=== PATIENT | female | born 1960 | race Caucasian/White ===

== ENCOUNTER 2017-04-26 17:57 | Inpatient (IN) | payer BC, SELFPAY ==
[~2017-04-26 17:57] MED LIST: Dexamethasone 20 MG/5 ML VIAL ONE; Glycopyrrolate 0.2 MG/ML 5 ML SYRINGE ONE; ISOVUE-370 76%-LOCM 1 ML ONE; Lidocaine 1% PF 5 ML VIAL ONE; Ondansetron HCl/PF 4 MG/2 ML Vial ONE; Succinylcholine Chloride 20 MG/ML 10 ml SYRINGE FS ONE
[2017-04-26] MEDS ORDERED: Ondansetron HCl/PF 4 MG/2 ML Vial ONE (18:33)
[2017-04-26] MEDS ORDERED: Piperacillin/Tazobactam 4.5 GM in Sodium Chloride 0.9% 100 ML IVPB ONE (18:45)
[2017-04-26 18:46] LABS: Hemoglobin 14.5 g/dL (12.0-16.0); Mean Corpuscular HGB CONC 32.3 g/dL (32.0-36.0); Mean Corpuscular Hemoglobin 30.1 pg (27.0-31.0); Mean Corpuscular Volume 93.4 fl (81.0-99.0); Mean Platelet Volume 8.8 fL (7.4-10.4); Platelet Count 257 thou/uL (130-400); Red Blood Cell (RBC) Count 4.81 mill/uL (4.20-5.40); White Blood Cell (WBC) Count 21.3 thou/uL (4.8-10.8)
[2017-04-26 18:51] LABS: INR-International Normal Ratio 1.2; PTT 32.8 SEC (22.9-36.1); Prothrombin Time 15.2 SEC (12.0-14.7)
[2017-04-26 18:54] LABS: Base Excess-Venous 3.3 mmol/L (-30.0-30.0); Bicarbonate (HCO3v) 28.6 mmol/L (1.0-85.0); CO2 Tension (PvCO2) 44.4 mmHg (41.0-51.0); Calcium, Ionized 0.94 mmol/L (1.12-1.32); Hemoglobin - Calc 16.5 g/dL (12.0-18.0); O2 Tension (PvO2) 27.5 mmHg (35.0-45.0); Potassium 3.3 mmol/L (3.4-4.7); pH (Venous) 7.417 (7.35-7.45)
[2017-04-26 19:03] LABS: ALT (SGPT) 39 U/L (8-55); AST (SGOT) 37 U/L (5-34); Albumin 3.7 g/dL (3.5-5.0); Alkaline Phosphatase 173 U/L (40-150); Anion Gap 15 mmol/L (10-20); BUN (Urea Nitrogen) 23 mg/dL (9.8-20.1); Bilirubin, Total 0.7 mg/dL (0.2-1.2); CK (CPK) 125 U/L (29-168); Calc. Creatinine Clearance 0 mL/min (70-130); Calcium 9.1 mg/dL (7.8-10.44); Carbon Dioxide 27 mmol/L (22-29); Chloride 92 mmol/L (98-107); Estimated GFR-MDRD 68; Globulin 3.6 g/dL (2.4-3.5); Glucose 143 mg/dL (70-105); Potassium 3.6 mmol/L (3.5-5.1); Protein, Total 7.3 g/dL (6.0-8.3); Sodium 130 mmol/L (136-145)
[2017-04-26 19:04] LABS: Fibrinogen 1107 mg/dL (253-463)
[2017-04-26 19:10] LABS: Band 10 % (5-11); Lymphocytes 3 % (21-51); MDiff Complete? YES; Monocytes 4 % (0-10); Neutrophil 83 % (42-75); PLT Morphology Comment Appears Adequate
[2017-04-26] MEDS ORDERED: Clindamycin/D5W 900 mg/50 ml Premix Bag ONE (19:19)
[2017-04-26 19:22] LABS: FSP-Qualitative Normal (Normal)
--- NOTE | 2017-04-26 19:48 | HP ---
DATE OF ADMISSION: 04/26/2017 CHIEF COMPLAINT: Right leg infection. HISTORY OF PRESENT ILLNESS: Cash is a 56-year-old female, who was diagnosed with right leg cellul itis 5 days ago, prescribed antibiotics by primary care physician. She could not take, they made her sick. She now has bulla formation, blistering, severe pain to her right upper inner thigh. Seen by Dr. Sepulveda and I have been consulted for neck fascia. CT scan which shows extensive air in the sub cu going up towards her groin and down towards the knee. She denies previous history of significant soft tissue infection. She has diabetes. She takes metformin. She has hypothyroidism. PAST MEDICAL HISTORY: Diabetes, hypothyroidism, hypertension. PAST SURGICAL HISTORY: None. MEDICINES: See list. ALLERGIES: NAPROXEN, CODEINE, PENICILLIN. SOCIAL HISTORY: No smoking, alcohol, or other drugs. REVIEW OF SYSTEMS: Ten system review of systems otherwise negative. PHYSICAL EXAMINATION: VITAL SIGNS: Blood pressure 158/87. Her pulse is 76, she is afebrile. HEENT: Sclerae are anicteric. Oropharynx clear. NECK: No lymphadenopathy. CHEST: Clear. HEART: Regular rate and rhythm. ABDOMEN: Soft, nontender. EXTREMITIES: Right thigh shows her to be bulla formation, extensive subcu crepitance and necrotic sk in, very tender to touch. LABORATORY: White blood cell count is 21, hemoglobin 14, platelets of 257. Sodium 130, potassium is 3.6, creatinine 0.86, glucose 143. CT scan shows extensive subcu air. ASSESSMENT: 1. Necrotizing fasciitis, right leg and groin. 2. Diabetes. PLAN: To OR for extensive debridement tonight.
[2017-04-26] MEDS ORDERED: Midazolam HCl 2 mg/2 ml Vial ONE (19:51)
[2017-04-26] MEDS ORDERED: Ketamine 50 MG/ML VIAL ONE (19:51)
[2017-04-26] MEDS ORDERED: Fentanyl 100 MCG/2 ML VIAL ONE (19:51)
--- NOTE | 2017-04-26 20:14 | RAD ---
ONE VIEW CHEST: Indication: Fever. FINDINGS: There is a patchy left basilar opacity, laterally. Right lung is clear. Cardiac silhouette is mildly enlarged. There is vascular calcification. IMPRESSION: Patchy left basilar opacity which may relate to pneumonia in the correct clinical context. Recommend follow up with dedicated two view chest to confirm resolution. POS: [facility]
--- NOTE | 2017-04-26 20:19 | RAD ---
TWO VIEW RIGHT FEMUR SERIES: Clinical history: Cellulitis, infection. FINDINGS: There is scattered heterogeneous density of the soft tissues indicating soft tissue gas. No evidence of acute osseous destructive lesion identified. IMPRESSION: Soft tissue gas. Correlate clinically. This is seen involving the region of the proximal to midthigh of the right lower extremity. Finding may relate to gas producing infectious organism. POS: [facility]
--- NOTE | 2017-04-26 20:44 | CT ---
CT OF ABDOMEN AND PELVIS WITH CONTRAST LIMITED CT LOWER EXTREMITY WITH CONTRAST: History: Abdominal and pelvic pain, abscess. FINDINGS: There is soft tissue gas which is centered at the lower quadrant of the right abdomen and pelvis subc utaneous tissues with deep extension into the peroneum at the region of the mons pubis labia majora o n the right, and within the imaged proximal right thigh. There is surrounding cellulitis and overlyin g skin thickening. No drainable soft tissue abscess is seen. There is extension of soft tissue air wi thin the fascial planes of the right thigh. No significant retroperitoneal gas is seen. Fatty infiltr ation of the liver. No definite acute abnormality of the solid abdominal organs. Mild vascular calcif ication is seen. Volume loss is seen at the lung bases. Bowel is incompletely assessed without enteri c contrast. Urinary bladder is moderately distended, and unopacified. There is no acute osseous abnor mality visualized. IMPRESSION: Extensive soft tissue gas which spans the ventral abdominal wall of the right lower quadrant through the pelvic soft tissues and into the proximal right back. There is deep seated soft tissue gas within the fascial planes of the proximal right thigh. Associated edema related to cellulitis and overlying skin thickening is present. There is reactive adenopathy. No drainable abscess. Correlate clinically for evidence of a gas producing infectious organism. Necrotizing fascitis not excluded on the basis of this exam given the above described findings. 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 Recommend urgent surgical consultation. POS: [facility]
[2017-04-26] MEDS ORDERED: SUGAMMADEX SODIUM 500 MG/5 ML VIAL ONE (20:59)
[2017-04-26] MEDS ORDERED: Albuterol Sulfate HFA (OR ONLY) ONE (21:04)
[2017-04-26] MEDS ORDERED: Ondansetron HCl/PF 4 MG/2 ML Vial IVP PRN (21:19)
[2017-04-26] MEDS ORDERED: Promethazine HCl 25 MG/ML VIAL IM PRN ×2 (21:19→22:42)
[2017-04-26] MEDS ORDERED: Promethazine HCl 25 MG/ML VIAL SLOW IVP PRN (21:19)
--- NOTE | 2017-04-26 21:24 | OP ---
DATE: 04/26/2017 PREOPERATIVE DIAGNOSIS: Necrotizing infection, right leg, groin, perineum. POSTOPERATIVE DIANOSIS: Necrotizing infection, right leg, groin, perineum. PROCEDURE: Extensive debridement, wide local excision of necrotizing infection to right leg, perineu m and groin. SURGEON: Que Michael M.D. ANESTHESIA: General. ESTIMATED BLOOD LOSS: 50 mL COMPLICATIONS: None. FINDINGS: Significant subcutaneous air was found. There is extensive devitalization of the tissues of the right inner thigh. There was tracking down t owards any up to the right anterior superiorly iliac crest as well as into the right labia. All necr otic tissue was debrided including fascia. The wound is irrigated. Cultures were obtained. The wou nd was irrigated. Meticulous hemostasis was obtained. A wound VAC was placed. Patient is en route to recovery in stable condition. She will likely need reexploration, extensive debridement, and mult iple operations.
[2017-04-26] MEDS ORDERED: Acetaminophen 1,000 MG in Premix Bag 1 BAG IVPB PRN (22:42)
[2017-04-26] MEDS ORDERED: hydrALAZINE 20 MG/ML VIAL SLOW IVP PRN (22:42)
[2017-04-26] MEDS ORDERED: Fentanyl 100 MCG/2 ML VIAL SLOW IVP PRN (22:42)
[2017-04-26] MEDS ORDERED: Dextrose 5% in Water 1,000 ML IV PRN (22:42)
[2017-04-26] MEDS ORDERED: HumaLOG 300 UNITS/3 ML VIAL SC PRN (22:42)
[2017-04-26] MEDS ORDERED: Dextrose 50% Abboject 50 ML SYRINGE SLOW IVP PRN (22:42)
[2017-04-26] MEDS ORDERED: Vancomycin HCl 1 GM in Premix Bag 1 BAG IVPB SCH (23:00)
[2017-04-26] MEDS ORDERED: metroNIDAZOLE 500 MG in Premix Bag 1 BAG IVPB SCH (23:00)
[2017-04-26] MEDS ORDERED: VANCOMYCIN IVPB PRN (23:00)
[2017-04-27] MEDS: traMADol HCl 50 MG TAB PO PRN (00:22)
[2017-04-27] MEDS: Sodium Chloride 0.9% 1,000 ML IV SCH ×3 (00:25→15:03)
[2017-04-27 05:36] LABS: Anion Gap 11 mmol/L (10-20); BUN (Urea Nitrogen) 19 mg/dL (9.8-20.1); Calc. Creatinine Clearance 135 mL/min (70-130); Calcium 8.4 mg/dL (7.8-10.44); Carbon Dioxide 28 mmol/L (22-29); Chloride 96 mmol/L (98-107); Estimated GFR-MDRD 82; Glucose 211 mg/dL (70-105); Potassium 3.8 mmol/L (3.5-5.1); Sodium 131 mmol/L (136-145)
[2017-04-27 05:49] LABS: Band 24 % (5-11); Hemoglobin 12.5 g/dL (12.0-16.0); Lymphocytes 5 % (21-51); MDiff Complete? YES; Mean Corpuscular Volume 93.8 fl (81.0-99.0); Mean Platelet Volume 8.8 fL (7.4-10.4); Monocytes 6 % (0-10); Neutrophil 65 % (42-75); Platelet Count 214 thou/uL (130-400); Red Blood Cell (RBC) Count 4.15 mill/uL (4.20-5.40); White Blood Cell (WBC) Count 19.7 thou/uL (4.8-10.8)
[2017-04-27] MEDS: metroNIDAZOLE 500 MG in Premix Bag 1 BAG IVPB SCH ×3 (06:40→21:11)
[2017-04-27] MEDS ORDERED: Vancomycin HCl 1 GM in Premix Bag 1 BAG IVPB SCH (09:00)
[2017-04-27] MEDS: Vancomycin HCl 1.5 GM in Sodium Chloride 0.9% 250 ML 300 ML IVPB SCH ×2 (09:53→21:10)
[2017-04-27] MEDS: Famotidine 20 MG TAB PO SCH ×2 (09:53→21:10)
--- NOTE | 2017-04-27 13:56 | PDOC.GSPN ---
Surgery Progress Note: Subj - Subjective Narrative: c/o pain at wound site. having urethral spasm Surgery Progress Note: Obj - Vital signs Vital signs: Vital Signs - Most Recent Temp Pulse Resp BP Pulse Ox 98.4 F 74 20 139/69 92 L 04/27/17 11:50 04/27/17 11:50 04/27/17 11:50 04/27/17 11:50 04/27/17 11:50 - Physical Exam General: no distress Cardiovascular: regular rate and rhythm Respiratory: clear to auscultation Abdomen: soft, non tender, distended Wound: wound vac Surgery Progress Note: Results - Labs Result Diagrams: 04/27/17 04:51 04/27/17 04:51 Lab results: Laboratory Results - last 24 hr 04/27/17 04/27/17 04/27/17 04:51 04:51 12:46 WBC 19.7 H RBC 4.15 L Hgb 12.5 Hct 38.9 MCV 93.8 MCH 30.0 MCHC 32.0 RDW 13.0 Plt Count 214 MPV 8.8 Neutrophils % (Manual) 65 Band Neuts % (Manual) 24 H Lymphocytes % (Manual) 5 L Monocytes % (Manual) 6 Sodium 131 L Potassium 3.8 Chloride 96 L Carbon Dioxide 28 Anion Gap 11 BUN 19 Creatinine 0.73 Estimated GFR (MDRD) 82 Glucose 211 H POC Glucose 169 H Calcium 8.4 Surgery Progress Note: A/P - Problem (1) Necrotizing fasciitis Current Visit: Yes Code(s): M72.6 - NECROTIZING FASCIITIS Status: Acute Assessment and Plan: Perineum and groin. Plan wound vac change in am in OR
[2017-04-27] MEDS ORDERED: B & O PR PRN (13:57)
[2017-04-28] MEDS: Sodium Chloride 0.9% 1,000 ML IV SCH ×2 (00:02→21:04)
[2017-04-28] MEDS: metroNIDAZOLE 500 MG in Premix Bag 1 BAG IVPB SCH ×3 (05:20→21:08)
[2017-04-28 08:10] LABS: Vancomycin, Trough 9.8 ug/mL
[2017-04-28] MEDS ORDERED: Fentanyl 100 MCG/2 ML VIAL ONE ×2 (08:23→11:48)
[2017-04-28] MEDS ORDERED: Vancomycin HCl 500 MG VIAL ONE (09:10)
[2017-04-28] MEDS ORDERED: B & O ONE (10:14)
[2017-04-28] MEDS ORDERED: Promethazine HCl 25 MG/ML VIAL SLOW IVP PRN (10:21)
[2017-04-28] MEDS ORDERED: Morphine Sulfate 2 MG/ML SYRINGE SLOW IVP PRN (10:21)
[2017-04-28] MEDS ORDERED: Promethazine HCl 25 MG/ML VIAL IM PRN (10:21)
[2017-04-28] MEDS ORDERED: Ondansetron HCl/PF 4 MG/2 ML Vial IVP PRN (10:21)
[2017-04-28] MEDS ORDERED: Furosemide 20 MG/2 ML VIAL ONE (11:29)
--- NOTE | 2017-04-28 11:35 | OP ---
DATE OF SERVICE: 04/28/2017 PREOPERATIVE DIAGNOSES: 1. Necrotizing infection, right leg and groin. 2. Venous insufficiency. POSTOPERATIVE DIAGNOSES: 1. Necrotizing infection, right leg and groin. 2. Venous insufficiency. PROCEDURE: Right internal jugular triple-lumen central line. SURGEON: Que Michael M.D. ANESTHESIA: General. ESTIMATED BLOOD LOSS: Minimal. COMPLICATIONS: None. SPECIMENS: None. TECHNIQUE: The patient was taken to the operating room and placed supine on the table. After genera l anesthetic was obtained, the right neck and chest was prepped and draped in a sterile fashion. The 22-gauge finder needle was used to cannulate the right internal jugular vein. Internal jugular vein was cannulated using a Seldinger needle and wire was passed under no tension. A small cuba was made at the wire entrance site. The wire was used as a guide to dilate the internal jugular vein. Tripl e lumen catheter was threaded to 16 cm, sewn to the neck using closed silk and connector. All ports flushed and татьяна blood without difficulty. Each was flushed with a saline solution. The patient the n had her operative procedure done.
--- NOTE | 2017-04-28 11:38 | OP ---
PREOPERATIVE DIAGNOSIS: Necrotizing infection to the right perineum and groin. POSTOPERATIVE DIAGNOSIS: Necrotizing infection to the right perineum and groin. PROCEDURE: Washout of wound, debridement of skin, subcutaneous fat, muscle, and fascia. Placement o f Instill wound VAC. SURGEON: Dr. Que Michael. ANESTHESIA: General. ESTIMATED BLOOD LOSS: Minimal. COMPLICATIONS: None. FINDINGS: The patient has a new sinus tract more posterior medial on the upper inside of her left pr oximal thigh, so a new elliptical incision is made in the skin debrided down into and communicating w ith the other wounds. TECHNIQUE: The patient was taken to the operating room and placed supine on the table. After genera l anesthetic was obtained, the VAC was removed from the right groin and leg and the wound was all pre pped and draped in a sterile fashion. New open incision is made over some necrotic tissue posteromed ially, this open wound then communicates with the others. A small amount of necrotic tissue was debr ided again, there was no significant retained infection. The wound was irrigated and Wound Care came in the room and an Instill wound VAC was placed. Patient tolerated the procedure well and was en ro hoopa to recovery in stable condition.
[2017-04-28] MEDS ORDERED: Sodium Chloride 0.9% 1,000 ML IV SCH (12:57)
--- NOTE | 2017-04-28 13:26 | RAD ---
SINGLE VIEW OF THE CHEST: Comparison: 04-26-17 History: Central line placement. FINDINGS: Single view of the chest shows an enlarged but stable cardiomediastinal silhouette. A right IJ centra l venous catheter is seen with its tip at the superior vena cava. No pneumothorax is seen. There is n o evidence of consolidation, mass, or pleural effusion. IMPRESSION: 1. Status post central line placement without evidence of complication. 2. Cardiomegaly. POS: [facility]
[2017-04-28] MEDS: Famotidine 20 MG TAB PO SCH ×2 (15:01→21:09)
[2017-04-28] MEDS: Vancomycin HCl 1.5 GM in Sodium Chloride 0.9% 250 ML 300 ML IVPB SCH ×2 (15:01→17:56)
[2017-04-28] MEDS: Fentanyl 100 MCG/2 ML VIAL SLOW IVP PRN (15:06)
[2017-04-28] MEDS ORDERED: Dexamethasone 20 MG/5 ML VIAL ONE (16:31)
[2017-04-28] MEDS ORDERED: Lidocaine 1% PF 5 ML VIAL ONE (16:31)
[2017-04-28] MEDS ORDERED: Ondansetron HCl/PF 4 MG/2 ML Vial ONE (16:31)
[2017-04-28] MEDS ORDERED: Propofol 200 MG/20 ML VIAL ONE (16:31)
[2017-04-28] MEDS ORDERED: Furosemide 20 MG/2 ML VIAL SLOW IVP SCH (17:00)
[2017-04-28] MEDS: traMADol HCl 50 MG TAB PO PRN (21:07)
[2017-04-29] MEDS: Vancomycin HCl 1.5 GM in Sodium Chloride 0.9% 250 ML 300 ML IVPB SCH ×3 (02:18→17:51)
[2017-04-29] MEDS: metroNIDAZOLE 500 MG in Premix Bag 1 BAG IVPB SCH ×3 (05:14→21:43)
[2017-04-29] MEDS: traMADol HCl 50 MG TAB PO PRN ×3 (05:15→23:33)
[2017-04-29 08:43] LABS: Vancomycin, Trough 17.5 ug/mL
[2017-04-29] MEDS: Triamterene/Hydrochlorothiazide 37.5 mg/25 mg Tablet PO SCH (09:15)
[2017-04-29] MEDS: Famotidine 20 MG TAB PO SCH ×2 (09:16→21:43)
--- NOTE | 2017-04-29 10:04 | PDOC.GSPN ---
Surgery Progress Note: Subj - Subjective Patient reports: no new complaints Narrative: Still complaining of irritation from kelly Surgery Progress Note: Obj - Vital signs Vital signs: Vital Signs - Most Recent Temp Pulse Resp BP Pulse Ox 98.2 F 68 16 113/67 93 L 04/29/17 04:20 04/29/17 04:20 04/29/17 04:20 04/29/17 04:20 04/29/17 04:20 - Physical Exam General: no distress Cardiovascular: regular rate and rhythm Respiratory: clear to auscultation Wound: wound vac Surgery Progress Note: Results - Labs Result Diagrams: 04/27/17 04:51 04/27/17 04:51 Lab results: Laboratory Results - last 24 hr 04/29/17 04/29/17 04/29/17 00:10 05:30 08:11 POC Glucose 157 H 96 Vancomycin Trough 17.5 Surgery Progress Note: A/P - Problem (1) Necrotizing fasciitis Current Visit: Yes Code(s): M72.6 - NECROTIZING FASCIITIS Status: Acute Assessment and Plan: Plan dressing change tomorrow.
[2017-04-29 16:53] LABS: Vancomycin, Trough 18.3 ug/mL
[2017-04-30] MEDS: Vancomycin HCl 1.5 GM in Sodium Chloride 0.9% 250 ML 300 ML IVPB SCH ×3 (01:41→17:28)
[2017-04-30] MEDS: metroNIDAZOLE 500 MG in Premix Bag 1 BAG IVPB SCH ×3 (05:39→21:04)
[2017-04-30] MEDS: traMADol HCl 50 MG TAB PO PRN (05:46)
[2017-04-30] MEDS: Ondansetron HCl/PF 4 MG/2 ML Vial IVP PRN ×2 (05:50→20:56)
[2017-04-30] MEDS: Famotidine 20 MG TAB PO SCH ×2 (08:45→20:56)
[2017-04-30] MEDS: Triamterene/Hydrochlorothiazide 37.5 mg/25 mg Tablet PO SCH (08:45)
[2017-04-30] MEDS ORDERED: Fentanyl 100 MCG/2 ML VIAL ONE ×2 (10:45→14:02)
[2017-04-30] MEDS ORDERED: Promethazine HCl 25 MG/ML VIAL IM PRN ×2 (12:47→13:48)
[2017-04-30] MEDS ORDERED: Promethazine HCl 25 MG/ML VIAL SLOW IVP PRN ×2 (12:47→13:48)
[2017-04-30] MEDS ORDERED: Ondansetron HCl/PF 4 MG/2 ML Vial IVP PRN ×2 (12:47→13:48)
--- NOTE | 2017-04-30 13:29 | OP ---
DATE OF PROCEDURE: 04/30/2017 PREOPERATIVE DIAGNOSIS: Necrotizing fasciitis, right groin, perineum. POSTOPERATIVE DIAGNOSIS: Necrotizing fasciitis, right groin, perineum. PROCEDURES PERFORMED: Debridement, washout and wound VAC placement by Wound Care team under anesthes ia. SURGEON: Dr. Michael. ANESTHESIA: General. ESTIMATED BLOOD LOSS: Minimal. COMPLICATIONS: None. FINDINGS: The skin bridge between the 2 posterior incisions is now necrotic. There was also a track of purulence going up more proximal to the groin above the inguinal crease. Incision was made along the lateral pubic bone over this area. The bridge of skin between the posterior and middle wound to the right upper thigh are connected and opened. The wounds were all irrigated, debridement was perf ormed and the wound VAC was placed. The patient was en route to recovery in stable condition. All i nstrument counts, needle counts, and lap counts were correct.
[2017-04-30] MEDS ORDERED: Midazolam HCl 2 mg/2 ml Vial ONE (13:41)
[2017-04-30] MEDS ORDERED: Morphine Sulfate 2 MG/ML SYRINGE SLOW IVP PRN (13:48)
[2017-04-30] MEDS ORDERED: HYDROmorphone 2 MG/ML VIAL SLOW IVP PRN (13:48)
[2017-04-30] MEDS ORDERED: Ondansetron HCl/PF 4 MG/2 ML Vial ONE ×2 (14:38→16:52)
[2017-04-30] MEDS ORDERED: Lidocaine 1% PF 5 ML VIAL ONE (16:52)
[2017-04-30] MEDS ORDERED: Succinylcholine Chloride 20 MG/ML 10 ml SYRINGE FS ONE (16:52)
[2017-04-30] MEDS ORDERED: Dexamethasone 20 MG/5 ML VIAL ONE (16:52)
[2017-04-30] MEDS ORDERED: Propofol 200 MG/20 ML VIAL ONE (16:52)
[2017-04-30] MEDS ORDERED: PHENYLEPHRINE-NS 100 MCG/ML 10 ML SYRINGE ONE (16:52)
[2017-04-30] MEDS: Fentanyl 100 MCG/2 ML VIAL SLOW IVP PRN (20:57)
--- NOTE | 2017-04-30 21:30 | CON ---
DATE OF CONSULTATION: 04/30/2017 PULMONARY CONSULT Ms. Castrejon is a pleasant 56-year-old female. She has undergone 3 necrotizing fasciitis operative pr ocedures and it is anticipated that she may require more surgery. She was on BiPAP in the recovery room and I was consulted to assist in her management. When I evaluated earlier today, she was still slightly somnolent. She is much more alert this evenin g. She says she has sleep apnea, but has never been put on CPAP. She is willing to wear CPAP tonight, so we will try this at bedtime. We will plan to take her off Bi PAP currently, at this time. PAST MEDICAL HISTORY: Remarkable for diabetes, hypothyroidism, hypertension. FAMILY HISTORY: Negative for lung disease at an early age. ALLERGIES: Reported NAPROSYN, CODEINE, and PENICILLIN. MEDICATIONS: Have been reviewed. She is currently on ipratropium, albuterol, Synthroid, Levaquin, F lagyl, tramadol, and vancomycin. FAMILY HISTORY: Negative for lung disease at an early age. REVIEW OF SYSTEMS: Otherwise, a 12-point completely negative. PHYSICAL EXAMINATION: VITAL SIGNS: Blood pressure 104/47, heart rate is 85, respiratory rate is 19, oximetry is 94. HEENT: Pupils are equal. Sclerae is anicteric. NECK: Supple. LUNGS: Clear. HEART: Regular rhythm. S1 and S2 are normal. ABDOMEN: Soft and nontender. I did not examine her wounds. EXTREMITIES: Without asymmetry or edema. LABORATORY DATA: White count 19.7, hemoglobin 12.5. She has 24% bands 2 days ago. There is no rece nt electrolytes. IMPRESSION: Necrotizing fasciitis status post multiple debridements. PLAN: Antimicrobial therapy, nocturnal CPAP and get lab in the morning. Critical care time was 30 minutes.
[2017-05-01] MEDS: Fentanyl 100 MCG/2 ML VIAL SLOW IVP PRN ×4 (00:05→21:12)
[2017-05-01] MEDS: Vancomycin HCl 1.5 GM in Sodium Chloride 0.9% 250 ML 300 ML IVPB SCH ×3 (01:06→16:46)
[2017-05-01 05:37] LABS: Band 7 % (5-11); Hemoglobin 12.4 g/dL (12.0-16.0); Lymphocytes 26 % (21-51); MDiff Complete? YES; Mean Corpuscular Hemoglobin 28.7 pg (27.0-31.0); Mean Corpuscular Volume 95.6 fl (81.0-99.0); Metamyelocyte 2 % (0-0); Monocytes 7 % (0-10); Myelocyte 2 % (0-0); Neutrophil 56 % (42-75); PLT Morphology Comment Appears Adequate; Platelet Count 362 thou/uL (130-400); RBC Distribution Width 13.6 % (11.5-14.5); Red Blood Cell (RBC) Count 4.34 mill/uL (4.20-5.40); White Blood Cell (WBC) Count 21.4 thou/uL (4.8-10.8)
[2017-05-01 05:39] LABS: Anion Gap 10 mmol/L (10-20); BUN (Urea Nitrogen) 8 mg/dL (9.8-20.1); Calc. Creatinine Clearance 170 mL/min (70-130); Calcium 8.2 mg/dL (7.8-10.44); Carbon Dioxide 35 mmol/L (22-29); Chloride 98 mmol/L (98-107); Estimated GFR-MDRD Greater than 90; Glucose 117 mg/dL (70-105); Potassium 3.9 mmol/L (3.5-5.1); Sodium 139 mmol/L (136-145)
[2017-05-01] MEDS: metroNIDAZOLE 500 MG in Premix Bag 1 BAG IVPB SCH ×3 (06:04→21:14)
[2017-05-01] MEDS: traMADol HCl 50 MG TAB PO PRN ×2 (06:04→16:56)
--- NOTE | 2017-05-01 07:45 | RAD ---
SINGLE VIEW CHEST: Date: 05/01/17 COMPARISON: 04/28/17. HISTORY: Necrotizing fasciitis. FINDINGS: Single view of the chest shows an enlarged but stable cardiomediastinal silhouette. The central venou s catheter is unchanged in position. There is no evidence of consolidation, mass, or pleural effusion . IMPRESSION: Cardiomegaly without evidence of acute cardiopulmonary disease. POS: [facility]
[2017-05-01] MEDS: Famotidine 20 MG TAB PO SCH ×2 (09:25→20:13)
[2017-05-01] MEDS: Triamterene/Hydrochlorothiazide 37.5 mg/25 mg Tablet PO SCH (09:26)
--- NOTE | 2017-05-01 13:58 | PRG ---
DATE OF SERVICE: 05/01/2017 SUBJECTIVE: Ms. Clarke Castrejon only was able to wear the CPAP for an hour last night. She is doing w ell. She may have sleep apnea, but I doubt that this is the sleep apnea that absolutely necessitates wearing CPAP at night, so we will try her tonight without the CPAP. If she has significant obstruct ion, we can always add it back in. She says, she is feeling better, but she still has discomfort in her groin. OBJECTIVE: VITAL SIGNS: Her sats are 93 on 4 liter cannula, blood pressure 131/52, heart rate 68. LUNGS: Clear. HEART: Regular rhythm. S1 and S2 are normal. ABDOMEN: Soft. LABORATORY DATA: White count 21, hemoglobin 12.4, platelets 362,000. She has 7% bands down from 24% yesterday. Sodium 139, potassium 3.9, chloride 98, bicarbonate 35, BUN 8, creatinine 0.58. IMPRESSION: Necrotizing fasciitis, status post multiple surgeries, doing well. If she has another s urgery, she probably needs postop BiPAP again, but when she is fully awake, we can transition her off of this. I will change her CPAP noticed to p.r.n. in the evening. We will continue with wound care, which is the biggest issue and broad antimicrobial therapy.
--- NOTE | 2017-05-01 14:13 | PDOC.GSPN ---
Surgery Progress Note: Subj - Subjective Patient reports: no new complaints Narrative: Off BiPap Surgery Progress Note: Obj - Vital signs Vital signs: Vital Signs - Most Recent Temp Pulse Resp BP Pulse Ox 98.4 F 84 16 106/45 L 93 L 05/01/17 12:00 05/01/17 08:58 05/01/17 08:00 05/01/17 08:58 05/01/17 12:11 - Physical Exam General: no distress Cardiovascular: regular rate and rhythm Respiratory: coarse breath sounds Abdomen: soft, non tender Wound: wound vac Surgery Progress Note: Results - Labs Result Diagrams: 05/01/17 05:10 05/01/17 05:10 Lab results: Laboratory Results - last 24 hr 05/01/17 05/01/17 05/01/17 05:10 05:10 11:08 WBC 21.4 H RBC 4.34 Hgb 12.4 Hct 41.5 MCV 95.6 MCH 28.7 MCHC 30.0 L RDW 13.6 Plt Count 362 MPV 7.0 L Neutrophils % (Manual) 56 Band Neuts % (Manual) 7 Lymphocytes % (Manual) 26 Monocytes % (Manual) 7 Metamyelocytes % (Man) 2 H Myelocytes % 2 H Plt Morphology Comment Appears Adequate Sodium 139 Potassium 3.9 Chloride 98 Carbon Dioxide 35 H Anion Gap 10 BUN 8 L Creatinine 0.58 L Estimated GFR (MDRD) Greater than 90 Glucose 117 H POC Glucose 123 H Calcium 8.2 Surgery Progress Note: A/P - Problem (1) Necrotizing fasciitis Current Visit: Yes Code(s): M72.6 - NECROTIZING FASCIITIS Status: Acute Assessment and Plan: Will need washout and vac change this weekend
[2017-05-01 16:24] LABS: Vancomycin, Trough 16.3 ug/mL
[2017-05-02] MEDS: Vancomycin HCl 1.5 GM in Sodium Chloride 0.9% 250 ML 300 ML IVPB SCH ×3 (01:22→16:42)
[2017-05-02] MEDS: Fentanyl 100 MCG/2 ML VIAL SLOW IVP PRN ×4 (03:47→19:10)
[2017-05-02 04:36] LABS: Anion Gap 10 mmol/L (10-20); BUN (Urea Nitrogen) 9 mg/dL (9.8-20.1); Calc. Creatinine Clearance 185 mL/min (70-130); Calcium 8.4 mg/dL (7.8-10.44); Carbon Dioxide 36 mmol/L (22-29); Chloride 97 mmol/L (98-107); Estimated GFR-MDRD Greater than 90; Glucose 116 mg/dL (70-105); Potassium 3.6 mmol/L (3.5-5.1); Sodium 139 mmol/L (136-145)
[2017-05-02 04:56] LABS: Band 5 % (5-11); Eosinophils 2 % (0-10); Hemoglobin 12.7 g/dL (12.0-16.0); Lymphocytes 9 % (21-51); MDiff Complete? YES; Mean Corpuscular HGB CONC 31.6 g/dL (32.0-36.0); Mean Corpuscular Hemoglobin 29.9 pg (27.0-31.0); Mean Corpuscular Volume 94.7 fl (81.0-99.0); Mean Platelet Volume 6.7 fL (7.4-10.4); Metamyelocyte 3 % (0-0); Monocytes 12 % (0-10); Neutrophil 66 % (42-75); PLT Morphology Comment Appears Adequate; Platelet Count 349 thou/uL (130-400); RBC Distribution Width 13.6 % (11.5-14.5); RBC Morphology Normal; Reactive Lymphocytes 3 % (0-10); Red Blood Cell (RBC) Count 4.25 mill/uL (4.20-5.40); White Blood Cell (WBC) Count 16.9 thou/uL (4.8-10.8)
[2017-05-02] MEDS: metroNIDAZOLE 500 MG in Premix Bag 1 BAG IVPB SCH ×3 (06:22→22:29)
[2017-05-02] MEDS: Triamterene/Hydrochlorothiazide 37.5 mg/25 mg Tablet PO SCH (08:30)
[2017-05-02] MEDS: Famotidine 20 MG TAB PO SCH ×2 (08:30→19:09)
--- NOTE | 2017-05-02 09:22 | PRG ---
DATE OF SERVICE: 05/02/2017 SUBJECTIVE: The patient is still sore in her groin region, where she is debrided from the necrotizin g fasciitis. She is supposed to go down later today for further irrigation and debridement. OBJECTIVE: VITAL SIGNS: Temperature 98.8, pulse 82, blood pressure 146/58, O2 sat 93%. She is not requiring Bi PAP. HEENT: Unremarkable. NECK: No JVD. CHEST: Clear without wheezing. CARDIAC: S1 and S2 regular. ABDOMEN: Soft, nontender. EXTREMITIES: Wound VAC in the right groin. LABORATORY DATA: White blood cell count 16.9, hematocrit 40, platelet count 349. Sodium 139, potass ium 3.6, chloride 97, CO2 of 36, BUN 9, creatinine 2.5, glucose 116. ASSESSMENT: 1. Necrotizing fasciitis. 2. Status post acute respiratory failure, requiring BiPAP. PLAN: She is continuing antimicrobial therapy for the necrotizing fasciitis including Levaquin, vanc omycin, and metronidazole. The cultures have grown out micrococcus from the blood, which should be s ensitive to all the antibiotics that she is on. We will continue to follow her while she is in the [facility].
[2017-05-02] MEDS ORDERED: Ondansetron HCl/PF 4 MG/2 ML Vial IVP PRN (11:33)
[2017-05-02] MEDS ORDERED: Fentanyl 100 MCG/2 ML VIAL ONE ×2 (12:14→14:03)
[2017-05-02] MEDS ORDERED: Acetaminophen 500 MG TAB PO PRN (12:35)
--- NOTE | 2017-05-02 13:29 | OP ---
DATE OF PROCEDURE: 05/02/2017 PREOPERATIVE DIAGNOSIS: Necrotizing fasciitis, right groin, mons, labia, thigh, groin crease. POSTOPERATIVE DIAGNOSIS: Necrotizing fasciitis, right groin, mons, labia, thigh, groin crease. PROCEDURE: Excisional debridement of skin and subcutaneous tissue excision with 10-blade scalpel, re sected skin and subcutaneous tissue down to the muscle, excision of necrotic fascia, pulse irrigation with 5 liters of saline solution, wound care team application of wound VAC. ANESTHESIA: General anesthesia. ESTIMATED BLOOD LOSS: 25 mL. PROCEDURE IN DETAIL: Patient taken to the operating room where under general anesthesia in the dorsa l lithotomy position, the wound VAC was removed and the area prepared with Betadine, draped in routin e fashion. The wounds in the right groin, thigh crease, labia were systematically inspected and necr otic skin and subcutaneous tissue debrided sharply using cautery for hemostasis. 3-0 Vicryl was used in the right groin for hemostasis of the venous bleeder. Good hemostasis noted. After skin and sub cutaneous tissue were debrided sharply, resected with a 10-blade scalpel excisional debrided and disc arded. Wound was irrigated copiously with a pulse commutator tester. Wound care team then arrived and place d a wound VAC.
[2017-05-02] MEDS ORDERED: Ondansetron HCl/PF 4 MG/2 ML Vial ONE ×2 (13:58→15:44)
[2017-05-02] MEDS ORDERED: Propofol 200 MG/20 ML VIAL ONE (15:44)
[2017-05-02] MEDS ORDERED: Dexamethasone 20 MG/5 ML VIAL ONE (15:44)
[2017-05-02] MEDS ORDERED: Lidocaine 4% Topical Sol 50 ML BOT TOP SCH (17:15)
[2017-05-03] MEDS: Fentanyl 100 MCG/2 ML VIAL SLOW IVP PRN ×6 (01:32→21:50)
[2017-05-03] MEDS: Vancomycin HCl 1.5 GM in Sodium Chloride 0.9% 250 ML 300 ML IVPB SCH ×3 (02:40→17:58)
[2017-05-03] MEDS: metroNIDAZOLE 500 MG in Premix Bag 1 BAG IVPB SCH ×3 (05:50→20:57)
[2017-05-03 06:07] LABS: Anion Gap 9 mmol/L (10-20); BUN (Urea Nitrogen) 8 mg/dL (9.8-20.1); Calc. Creatinine Clearance 171 mL/min (70-130); Calcium 8.3 mg/dL (7.8-10.44); Carbon Dioxide 35 mmol/L (22-29); Chloride 99 mmol/L (98-107); Estimated GFR-MDRD Greater than 90; Glucose 118 mg/dL (70-105); Magnesium 1.8 mg/dL (1.6-2.6); Phosphorus 3.2 mg/dL (2.3-4.7); Potassium 3.7 mmol/L (3.5-5.1); Sodium 139 mmol/L (136-145)
[2017-05-03 06:12] LABS: Band 6 % (5-11); Hemoglobin 11.8 g/dL (12.0-16.0); Lymphocytes 15 % (21-51); MDiff Complete? YES; Mean Corpuscular HGB CONC 31.5 g/dL (32.0-36.0); Mean Corpuscular Hemoglobin 30.1 pg (27.0-31.0); Mean Corpuscular Volume 95.4 fl (81.0-99.0); Mean Platelet Volume 6.9 fL (7.4-10.4); Monocytes 10 % (0-10); Neutrophil 69 % (42-75); PLT Morphology Comment Appears Adequate; Platelet Count 389 thou/uL (130-400); RBC Distribution Width 13.5 % (11.5-14.5); Red Blood Cell (RBC) Count 3.93 mill/uL (4.20-5.40); White Blood Cell (WBC) Count 20.2 thou/uL (4.8-10.8)
--- NOTE | 2017-05-03 07:40 | PRG ---
DATE OF SERVICE: 05/03/2017 SUBJECTIVE: She is complaining of a headache this morning. She did have surgical debridement of her necrotizing fasciitis wound yesterday. PHYSICAL EXAMINATION: VITAL SIGNS: Temperature is 98.2, pulse 59, blood pressure 148/56, O2 sat 100%. Total intake for 24 hours is 2819, output 2175. HEENT: Unremarkable. NECK: No JVD. LUNGS: Clear without wheezing. CARDIOVASCULAR: S1, S2 regular. ABDOMEN: Soft, nontender. EXTREMITIES: She has a right groin wound, which has a wound VAC in place. LABORATORY DATA: White blood cell count 20, hematocrit 37.5, platelet count 389. Sodium 139, potass ium 3.7, chloride 99, CO2 35, BUN 8, creatinine 0.6, glucose 118. ASSESSMENT: 1. Necrotizing fasciitis. 2. Status post acute respiratory failure, which is now resolved. PLAN: She no longer needs the BiPAP. She can be transferred out to the surgical floor. She will co ntinue antibiotic therapy. At the surgeon's discretion, the central line can be discontinued.
[2017-05-03] MEDS: Zinc Sulfate 220 MG CAP PO SCH (09:21)
[2017-05-03] MEDS: Multivitamin W/ Minerals 1 TAB PO SCH (09:21)
[2017-05-03] MEDS: Famotidine 20 MG TAB PO SCH ×2 (09:22→20:56)
[2017-05-03] MEDS: Triamterene/Hydrochlorothiazide 37.5 mg/25 mg Tablet PO SCH (09:22)
[2017-05-03] MEDS: Ascorbic Acid 500 mg Chewable Tablet PO SCH (09:22)
[2017-05-03] MEDS: Polyethylene Glycol 3350 17 GM Packet PO SCH (09:23)
[2017-05-03 17:27] LABS: Vancomycin, Trough 18.1 ug/mL
[2017-05-03] MEDS: Ondansetron HCl/PF 4 MG/2 ML Vial IVP PRN (22:10)
[2017-05-04] MEDS: Fentanyl 100 MCG/2 ML VIAL SLOW IVP PRN ×6 (00:25→20:33)
[2017-05-04] MEDS: Vancomycin HCl 1.5 GM in Sodium Chloride 0.9% 250 ML 300 ML IVPB SCH ×3 (01:15→17:14)
[2017-05-04] MEDS: metroNIDAZOLE 500 MG in Premix Bag 1 BAG IVPB SCH ×3 (05:43→20:15)
[2017-05-04 05:51] LABS: #Eosinphils 0.3 thou/uL (0.0-0.7); #Lymphocytes 3.2 thou/uL (1.20-3.40); #Monocytes 1.2 thou/uL (0.11-0.59); #Neutrophils 12.2 thou/uL (1.40-6.50); %Basophils 0.2 % (0.0-1.0); %Eosinophils 1.8 % (0.0-10.0); %Lymphocytes 18.9 % (21.0-51.0); %Monocytes 6.8 % (0.0-10.0); %Neutrophils 72.2 % (42.0-75.0); Hemoglobin 11.6 g/dL (12.0-16.0); Mean Corpuscular Hemoglobin 30.3 pg (27.0-31.0); Mean Corpuscular Volume 94.9 fl (81.0-99.0); Mean Platelet Volume 6.7 fL (7.4-10.4); Platelet Count 362 thou/uL (130-400); RBC Distribution Width 13.4 % (11.5-14.5); Red Blood Cell (RBC) Count 3.82 mill/uL (4.20-5.40)
[2017-05-04 06:00] LABS: Anion Gap 8 mmol/L (10-20); BUN (Urea Nitrogen) 8 mg/dL (9.8-20.1); Calc. Creatinine Clearance 179 mL/min (70-130); Calcium 8.3 mg/dL (7.8-10.44); Carbon Dioxide 35 mmol/L (22-29); Chloride 100 mmol/L (98-107); Estimated GFR-MDRD Greater than 90; Glucose 120 mg/dL (70-105); Potassium 3.7 mmol/L (3.5-5.1); Sodium 139 mmol/L (136-145)
[2017-05-04] MEDS: Famotidine 20 MG TAB PO SCH ×2 (08:18→20:29)
[2017-05-04] MEDS: Ascorbic Acid 500 mg Chewable Tablet PO SCH (08:18)
[2017-05-04] MEDS: Multivitamin W/ Minerals 1 TAB PO SCH (08:18)
[2017-05-04] MEDS: Polyethylene Glycol 3350 17 GM Packet PO SCH (08:19)
[2017-05-04] MEDS: Triamterene/Hydrochlorothiazide 37.5 mg/25 mg Tablet PO SCH (08:19)
[2017-05-04] MEDS: Zinc Sulfate 220 MG CAP PO SCH (08:19)
--- NOTE | 2017-05-04 12:49 | PDOC.GSPN ---
Surgery Progress Note: Subj - Subjective Patient reports: no new complaints Narrative: wound vac seal issues overnight Surgery Progress Note: Obj - Vital signs Vital signs: Vital Signs - Most Recent Temp Pulse Resp BP Pulse Ox 98.1 F 72 28 H 134/76 94 L 05/04/17 11:17 05/04/17 11:17 05/04/17 11:17 05/04/17 11:17 05/04/17 11:17 - Physical Exam General: no distress Respiratory: clear to auscultation Abdomen: soft, non tender Wound: dressing clean,dry,intact Surgery Progress Note: Results - Labs Result Diagrams: 05/04/17 05:30 05/04/17 05:30 Lab results: Laboratory Results - last 24 hr 05/04/17 05/04/17 05/04/17 05:30 05:30 05:49 WBC 17.0 H RBC 3.82 L Hgb 11.6 L Hct 36.2 MCV 94.9 MCH 30.3 MCHC 32.0 RDW 13.4 Plt Count 362 MPV 6.7 L Neutrophils % 72.2 Lymphocytes % 18.9 L Monocytes % 6.8 Eosinophils % 1.8 Basophils % 0.2 Neutrophils # 12.2 H Lymphocytes # 3.2 Monocytes # 1.2 H Eosinophils # 0.3 Basophils # 0.0 Sodium 139 Potassium 3.7 Chloride 100 Carbon Dioxide 35 H Anion Gap 8 L BUN 8 L Creatinine 0.60 Estimated GFR (MDRD) Greater than 90 Glucose 120 H POC Glucose 118 H Calcium 8.3 05/04/17 11:11 WBC RBC Hgb Hct MCV MCH MCHC RDW Plt Count MPV Neutrophils % Lymphocytes % Monocytes % Eosinophils % Basophils % Neutrophils # Lymphocytes # Monocytes # Eosinophils # Basophils # Sodium Potassium Chloride Carbon Dioxide Anion Gap BUN Creatinine Estimated GFR (MDRD) Glucose POC Glucose 146 H Calcium Surgery Progress Note: A/P - Problem (1) Necrotizing fasciitis Current Visit: Yes Code(s): M72.6 - NECROTIZING FASCIITIS Status: Acute Assessment and Plan: Wound vac going to be difficult to seal. Will try wet to dry
[2017-05-04 13:00] VITALS: BMI 38.3
--- NOTE | 2017-05-04 15:50 | PRG ---
DATE OF SERVICE: 05/04/2017 SUBJECTIVE: Clarke Castrejon done well over the weekend. She is having wound VAC reapplied today plus some wet to dry dressings applied because of difficulty getting wound VAC to be adherent. OBJECTIVE: VITAL SIGNS: He is afebrile, heart rate 72, respiratory rate 20, oximetry is 94 on 2 liters, blood p ressure 134/76. LUNGS: Clear. HEART: Regular rhythm. ABDOMEN: Soft. LABORATORY DATA: White count 17.9, hemoglobin 11.6, platelets 362,000. Sodium 139, potassium 3.7, c hloride 100, bicarbonate 35, BUN 8, creatinine 0.6. IMPRESSION: Necrotizing fasciitis, status post multiple debridements, clinically stable at this time . PLAN: Continue broad antimicrobial therapy for General Surgery and Wound Care. She adequately prote cting her airway with no respiratory distress and no evidence of clinically pneumonia at this time.
[2017-05-05] MEDS: Fentanyl 100 MCG/2 ML VIAL SLOW IVP PRN (01:07)
[2017-05-05] MEDS: Ondansetron HCl/PF 4 MG/2 ML Vial IVP PRN (01:08)
[2017-05-05] MEDS: Vancomycin HCl 1.5 GM in Sodium Chloride 0.9% 250 ML 300 ML IVPB SCH ×2 (01:20→09:49)
[2017-05-05] MEDS: metroNIDAZOLE 500 MG in Premix Bag 1 BAG IVPB SCH (06:36)
[2017-05-05] MEDS: Ibuprofen 800 MG TAB PO PRN ×3 (08:03→22:48)
[2017-05-05] MEDS: traMADol HCl 50 MG TAB PO PRN ×3 (08:04→22:48)
[2017-05-05] MEDS: Triamterene/Hydrochlorothiazide 37.5 mg/25 mg Tablet PO SCH (08:11)
[2017-05-05] MEDS: Ascorbic Acid 500 mg Chewable Tablet PO SCH (08:12)
[2017-05-05] MEDS: Zinc Sulfate 220 MG CAP PO SCH (08:12)
[2017-05-05] MEDS: Famotidine 20 MG TAB PO SCH ×2 (08:13→21:09)
[2017-05-05] MEDS: Polyethylene Glycol 3350 17 GM Packet PO SCH (08:13)
[2017-05-05] MEDS: Multivitamin W/ Minerals 1 TAB PO SCH (08:13)
--- NOTE | 2017-05-05 08:47 | PDOC.GSPN ---
Surgery Progress Note: Subj - Subjective Narrative: c/o pain during dressing change Surgery Progress Note: Obj - Vital signs Vital signs: Vital Signs - Most Recent Temp Pulse Resp BP Pulse Ox 98.7 F 83 18 134/71 92 L 05/05/17 04:00 05/05/17 04:00 05/05/17 04:00 05/05/17 04:00 05/05/17 04:00 - Physical Exam General: no distress Cardiovascular: regular rate and rhythm Respiratory: clear to auscultation Wound: wound vac Surgery Progress Note: Results - Labs Result Diagrams: 05/04/17 05:30 05/04/17 05:30 Lab results: Laboratory Results - last 24 hr 05/04/17 05/05/17 20:24 05:26 POC Glucose 201 H 120 H Surgery Progress Note: A/P - Problem (1) Necrotizing fasciitis Current Visit: Yes Code(s): M72.6 - NECROTIZING FASCIITIS Status: Acute Assessment and Plan: continue wound care, will discuss antibiotics with Dr. Frances
[2017-05-05] MEDS: Clindamycin 150 MG CAP PO SCH ×3 (09:54→21:09)
--- NOTE | 2017-05-05 10:59 | CON ---
DATE OF CONSULTATION: 05/05/2017 REASON FOR CONSULTATION: Necrotizing fasciitis. HISTORY OF PRESENT ILLNESS: A 56-year-old who has a history of type 2 diabetes mellitus and Chiari m alformation as well as prior condyloma resected from the perianal area who was admitted a few days ag o to the hospital with progressively worsening inflammatory process in right perineal region. The esteban ramos had surgical intervention by Dr. Michael number of times; initial one was on 04/26/2017 consist ed of debridement of necrotic tissues in the right inner thigh which traced towards the right anterio r superior iliac crest and right labia. There is facial involvement. Cultures have yielded positive Gram stain. The cultures themselves did not retrieve any organism and was labeled as mixed skin elian ra. The Gram stain showed gram positive cocci in pairs, clusters and gram positive rods and gram-neg ative rods as well. Patient has progressed well. She has a wound VAC negative pressure dressing in place. She denies headaches, visual symptoms, sore throat, odynophagia, dysphagia, no cough or sputu m production or chest pain, no abdominal pain. No other joint symptoms. No neurological symptoms. PAST MEDICAL HISTORY: Includes type 2 diabetes mellitus, obesity, condyloma resected in the perianal area, hypothyroidism, hypertension, cervical malignancy, hysterectomy. SOCIAL HISTORY: Current smoker. ALLERGIES: CODEINE, NIACIN, PENICILLIN with rash. MEDICATIONS: Levothyroxine, metformin, Roper, DuoNebs, vitamin C, clindamycin, levofloxacin, tramado l, zinc sulfate, triamterene and hydrochlorothiazide. FAMILY HISTORY: Noncontributory. PHYSICAL EXAMINATION: VITAL SIGNS: Temperature max 99, blood pressure 120/54, pulse 87, respirations 18, O2 sat 93%.GENERA L: Appears in no distress, pleasant. SKIN: Shows the right groin had negative pressure dressing. Peripheral IV access. No lymphadenopat hy. HEENT: Ocular movements are conjugate. Oral cavity is normal. NECK: Supple. LUNGS: With symmetric clear breath sounds. HEART: S1, S2, regular rate. No S3 or S4. ABDOMEN: Soft, nondistended or tender. No ascites. No bladder distention. EXTREMITIES: No joint inflammatory activity. Pulses are 1+ in dorsalis pedis. NEUROLOGIC: Cognitive function appears to be intact. LABORATORY DATA: White cell count was started at 19,000 and now is 17,000, hemoglobin 11, bands are down from 24-6, and platelets at 362. Sodium 139, creatinine 0.6. Liver profile with AST 37, ALT 39 , alkaline phosphatase 173, albumin 3.7. Vancomycin trough ranging from 9.8-18.1. ASSESSMENT AND DISCUSSION: 1. Type 2 diabetes. 2. Necrotizing infection, polymicrobial, perineal and right inner thigh region status post surgical debridement with adequate progress. According to the latest photos of the base of the wound, there i s nice fresh red tissue, no necrosis. The margins are not inflamed and there is no erythema surround ing the area and I do not see any tunneling has been described. There is no evidence of compromise o f deeper structures such as pubic bone or pelvic viscera. At this point, we will transition to clind amycin and oral levofloxacin. If she does not tolerate the combination, we can transition to Flagyl and levofloxacin. Another option would be Flagyl plus Omnicef or Flagyl plus cephalexin. We will tr y Cleocin with levofloxacin since patient already has medications that had been purchased prior to [facility] admission.
[2017-05-05] MEDS: HYDROcodone/Acetaminophen 10/325 mg Tablet PO PRN (13:45)
--- NOTE | 2017-05-05 19:37 | PRG ---
DATE OF SERVICE: 05/05/2017 SUBJECTIVE: Cash says she feels a little better every day. It still hurts to sit up in her groin . OBJECTIVE: VITAL SIGNS: She is afebrile, heart rate 70, respiratory rate 16, oximetry is 92 on room air, blood pressure 113/66. LUNGS: Clear. HEART: Regular rate and rhythm. ABDOMEN: Soft. LABORATORY DATA: There is no new lab today. Her blood glucoses have been for the most part controll ed, less than 150. IMPRESSION: 1. Necrotizing fasciitis, status post multiple debridements. 2. Atelectasis. 3. Diabetes. 4. History of hypertension. 5. Chronic tobacco use. 6. CODEINE, NIACIN, and PENICILLIN allergies. Dr. Frances has seen her and has recommended her to change in antimicrobial therapy. Continue to janis trinidad with other physicians.
[2017-05-06] MEDS: Clindamycin 150 MG CAP PO SCH ×4 (03:42→20:58)
[2017-05-06] MEDS: Ascorbic Acid 500 mg Chewable Tablet PO SCH (08:13)
[2017-05-06] MEDS: Zinc Sulfate 220 MG CAP PO SCH (08:13)
[2017-05-06] MEDS: Famotidine 20 MG TAB PO SCH ×2 (08:14→20:57)
[2017-05-06] MEDS: Multivitamin W/ Minerals 1 TAB PO SCH (08:14)
[2017-05-06] MEDS: Triamterene/Hydrochlorothiazide 37.5 mg/25 mg Tablet PO SCH (08:14)
[2017-05-06] MEDS: Fentanyl 100 MCG/2 ML VIAL SLOW IVP PRN (09:19)
[2017-05-06] MEDS: traMADol HCl 50 MG TAB PO PRN ×2 (10:19→20:57)
[2017-05-06] MEDS: Ibuprofen 800 MG TAB PO PRN ×2 (10:20→20:56)
[2017-05-06] MEDS: Polyethylene Glycol 3350 17 GM Packet PO SCH (13:55)
--- NOTE | 2017-05-06 13:58 | PDOC.GSPN ---
Surgery Progress Note: Subj - Subjective Narrative: Complains of severe pain with dressing changes Surgery Progress Note: Obj - Vital signs Vital signs: Vital Signs - Most Recent Temp Pulse Resp BP Pulse Ox 98.6 F 74 18 126/75 91 L 05/06/17 08:07 05/06/17 08:07 05/06/17 08:07 05/06/17 08:07 05/06/17 08:07 - Physical Exam General: no distress Cardiovascular: regular rate and rhythm Respiratory: clear to auscultation Abdomen: soft, non tender Wound: wound vac Surgery Progress Note: Results - Labs Result Diagrams: 05/04/17 05:30 05/04/17 05:30 Lab results: Laboratory Results - last 24 hr 05/06/17 05/06/17 06:14 11:02 POC Glucose 111 H 115 H Surgery Progress Note: A/P - Problem (1) Necrotizing fasciitis Current Visit: Yes Code(s): M72.6 - NECROTIZING FASCIITIS Status: Acute Assessment and Plan: Continue dressing changes. She will need continued hospitalization until pain more controlled with wound vac. Wound vac is necessary even after DC given the extent of her wounds
--- NOTE | 2017-05-06 15:30 | PRG ---
DATE OF SERVICE: 05/06/2017 SUBJECTIVE: Ms. Castrejon is doing well overnight. She got up and ambulated twice yesterday. She say s she is feeling better every day. She still hurts her to sit up. PHYSICAL EXAMINATION: VITAL SIGNS: She is afebrile, heart rate 74, respiratory rate is 18, oximetry is 91% on room air, bl ood pressure 126/75. LUNGS: Clear. HEART: Regular rhythm. S1 and S2 are normal. ABDOMEN: Soft and nontender. EXTREMITIES: Without clubbing, cyanosis, or edema. Her wound was not examined. IMPRESSION: 1. Necrotizing fasciitis, status post multiple debridements, clinically stable. 2. Atelectasis. 3. Diabetes. 4. Hypertension. 5. Deconditioning. 6. Chronic tobacco use. 7. CODEINE, NIACIN, PENICILLIN allergies. She will continue with antimicrobial therapy and wound care. One blood culture grew micrococcus which probably is a contaminant. There is no new lab today other than blood glucoses which have been less than 150. She appears to be progressing nicely.
[2017-05-06] MEDS: Ondansetron ODT 4 MG TAB PO PRN (17:23)
[2017-05-07] MEDS: Clindamycin 150 MG CAP PO SCH ×4 (03:04→21:01)
[2017-05-07] MEDS: Ibuprofen 800 MG TAB PO PRN ×2 (03:05→12:21)
[2017-05-07] MEDS: Ondansetron ODT 4 MG TAB PO PRN (03:08)
[2017-05-07] MEDS: Zinc Sulfate 220 MG CAP PO SCH (08:10)
[2017-05-07] MEDS: Ascorbic Acid 500 mg Chewable Tablet PO SCH (08:10)
[2017-05-07] MEDS: Triamterene/Hydrochlorothiazide 37.5 mg/25 mg Tablet PO SCH (08:11)
[2017-05-07] MEDS: Famotidine 20 MG TAB PO SCH ×2 (08:11→21:01)
[2017-05-07] MEDS: Polyethylene Glycol 3350 17 GM Packet PO SCH (08:12)
--- NOTE | 2017-05-07 08:49 | PDOC.GSPN ---
Surgery Progress Note: Subj - Subjective Patient reports: no new complaints Surgery Progress Note: Obj - Vital signs Vital signs: Vital Signs - Most Recent Temp Pulse Resp BP Pulse Ox 98 F 71 12 127/74 93 L 05/07/17 07:32 05/07/17 07:32 05/07/17 07:32 05/07/17 07:32 05/07/17 07:32 - Physical Exam General: no distress Cardiovascular: regular rate and rhythm Respiratory: clear to auscultation Abdomen: soft, non tender Wound: wound vac Surgery Progress Note: Results - Labs Result Diagrams: 05/04/17 05:30 05/04/17 05:30 Lab results: Laboratory Results - last 24 hr 05/07/17 06:00 POC Glucose 122 H Surgery Progress Note: A/P - Problem (1) Necrotizing fasciitis Current Visit: Yes Code(s): M72.6 - NECROTIZING FASCIITIS Status: Acute Assessment and Plan: Continue vac dressing changes. Due to her complex wounds and need for wound vac she is not going to be able to be discharged until next week at the earliest. I plan on seeing wound tomorrow with dressing changes.
[2017-05-07] MEDS: Multivitamin W/ Minerals 1 TAB PO SCH (09:00)
--- NOTE | 2017-05-07 11:00 | PRG ---
DATE OF SERVICE: 05/07/2017 SUBJECTIVE: Ms. Castrejon says she got up at 3 in the morning and walked around the unit twice. She says her pain gets a little better each day. OBJECTIVE: VITAL SIGNS: She is afebrile, heart rate is 71, respiratory rate is 12, oximetry is 93% on 2 liters and blood pressure 127/74. LUNGS: Clear. HEART: Regular rhythm. ABDOMEN: Soft and nontender. LABORATORY DATA: There is no recent lab. IMPRESSION: 1. Status post debridement of necrotizing fasciitis. 2. Tobacco use up until admission. 3. Mild hypoxemia, most likely secondary to atelectasis and bed rest. PLAN: Continue with therapy.
[2017-05-07] MEDS: traMADol HCl 50 MG TAB PO PRN (12:21)
--- NOTE | 2017-05-07 17:22 | PRG ---
DATE OF.DATE OF SERVICE: 05/07/2017 SUBJECTIVE: Feeling better, no respiratory symptoms. A little bit of diarrhea, mostly soft stools. Pain is better. OBJECTIVE: VITAL SIGNS: Normal. HEENT: Ocular movements conjugate. Oral cavity moist. NECK: Supple. LUNGS: Symmetric clear breath sounds. Right groin with negative pressure dressing. LABORATORY DATA: White cell count is at 17.0, hemoglobin 11, platelets 362. ASSESSMENT AND DISCUSSION: Type 2 diabetes and necrotizing infection, polymicrobial perineal right i nner thigh region, status post surgical debridement with adequate progress. The patient has a little bit of nausea from the oral medication or clindamycin, levofloxacin and we will continue the current regimen with antinausea medication support.
[2017-05-07] MEDS: HYDROcodone/Acetaminophen 10/325 mg Tablet PO PRN (23:20)
[2017-05-08] MEDS: Clindamycin 150 MG CAP PO SCH ×4 (03:20→21:27)
[2017-05-08] MEDS: Triamterene/Hydrochlorothiazide 37.5 mg/25 mg Tablet PO SCH (08:58)
[2017-05-08] MEDS: Polyethylene Glycol 3350 17 GM Packet PO SCH (08:58)
[2017-05-08] MEDS: Ascorbic Acid 500 mg Chewable Tablet PO SCH (08:59)
[2017-05-08] MEDS: Zinc Sulfate 220 MG CAP PO SCH (09:00)
[2017-05-08] MEDS: Multivitamin W/ Minerals 1 TAB PO SCH (09:00)
[2017-05-08] MEDS: Famotidine 20 MG TAB PO SCH ×2 (09:00→21:27)
[2017-05-08] MEDS: HYDROcodone/Acetaminophen 10/325 mg Tablet PO PRN (09:02)
[2017-05-08] MEDS: Fentanyl 100 MCG/2 ML VIAL SLOW IVP PRN ×2 (09:57→21:26)
--- NOTE | 2017-05-08 10:34 | PDOC.GSPN ---
Surgery Progress Note: Subj - Subjective Narrative: Seen during dressing change. VAc changes still very painful Surgery Progress Note: Obj - Vital signs Vital signs: Vital Signs - Most Recent Temp Pulse Resp BP Pulse Ox 98.9 F 84 20 125/66 92 L 05/08/17 07:47 05/08/17 07:47 05/08/17 07:47 05/08/17 07:47 05/08/17 07:47 - Physical Exam General: no distress Abdomen: soft, non tender Wound: wound vac (The wound is seen on dressing change. No purulence. The lower incisions are starting to granulate with healthy tissue. The wound over her groin has minimal granulation) Surgery Progress Note: Results - Labs Result Diagrams: 05/04/17 05:30 05/04/17 05:30 Lab results: Laboratory Results - last 24 hr 05/08/17 05:36 POC Glucose 107 Surgery Progress Note: A/P - Problem (1) Necrotizing fasciitis Current Visit: Yes Code(s): M72.6 - NECROTIZING FASCIITIS Status: Acute - Plan Plan: Going to need prolonged hospitalization given complex nature of this necrotizing infection and the wound care required
--- NOTE | 2017-05-08 10:59 | PRG ---
DATE OF SERVICE: 05/08/2017 Ms. Castrejon's wounds dressings changed. Dr. Michael was on his way to evaluate the wound. She has s ome erythema around the edges where the wound VAC was inserted. She denies having more pain. She says she actually is continuing to feel a little better today. PHYSICAL EXAMINATION: VITAL SIGNS: She is afebrile, heart rate 84. Respiratory rate is 20, oximetry is 92 on 2 liter jen loren, blood pressure 125/66. LUNGS: Clear. CARDIOVASCULAR: Regular rhythm. ABDOMEN: Soft and nontender. IMPRESSION: Necrotizing fasciitis. PLAN: Continue antimicrobial therapy, wound care and ambulation. She is a smoker, but has no clinic al evidence of COPD at this time. She appears to be stable.
[2017-05-08] MEDS: traMADol HCl 50 MG TAB PO PRN (12:20)
[2017-05-08] MEDS: Ondansetron HCl/PF 4 MG/2 ML Vial IVP PRN (21:26)
[2017-05-09] MEDS: Clindamycin 150 MG CAP PO SCH ×4 (04:53→21:10)
[2017-05-09] MEDS: Ascorbic Acid 500 mg Chewable Tablet PO SCH (08:59)
[2017-05-09] MEDS: Multivitamin W/ Minerals 1 TAB PO SCH (08:59)
[2017-05-09] MEDS: Famotidine 20 MG TAB PO SCH ×2 (09:00→21:10)
[2017-05-09] MEDS: Triamterene/Hydrochlorothiazide 37.5 mg/25 mg Tablet PO SCH (09:00)
[2017-05-09] MEDS: Polyethylene Glycol 3350 17 GM Packet PO SCH (09:00)
[2017-05-09] MEDS: Zinc Sulfate 220 MG CAP PO SCH (09:00)
[2017-05-09] MEDS: traMADol HCl 50 MG TAB PO PRN (09:10)
[2017-05-09] MEDS: Ibuprofen 800 MG TAB PO PRN (09:10)
[2017-05-09] MEDS ORDERED: Clopidogrel Bisulfate 75 MG TAB ONE (09:59)
[2017-05-09] MEDS: Ondansetron HCl/PF 4 MG/2 ML Vial IVP PRN (10:10)
--- NOTE | 2017-05-09 10:46 | PRG ---
DATE OF SERVICE: 05/09/2017 SUBJECTIVE: Ms. Castrejon is feeling better today. She is having some nausea with her antibiotics, bu t this is managed with medication. Her VAC has kept it sealed and she has been able to ambulate twic e today already and her pain is less than yesterday. She still occasionally has sharp pain in her th igh especially when the VAC is pulling. OBJECTIVE: VAC is in place with good seal. This was changed yesterday. T-max is 99.2. Vital signs are normal. Blood sugars have ranged from 84-142. ASSESSMENT: Necrotizing fasciitis of the right thigh, status post debridement. She has a VAC in [facility] [place] which is maintaining its seal. She is awaiting placement with ongoing back and antibiotics as an outpatient.
[2017-05-09] MEDS: HYDROcodone/Acetaminophen 10/325 mg Tablet PO PRN ×2 (17:41→22:03)
--- NOTE | 2017-05-09 23:52 | PRG ---
DATE OF SERVICE: 05/09/2017 SERVICE: Pulmonary medicine. INTERVAL HISTORY: Patient is doing really well from respiratory standpoint. She denies any current shortness of breath, fevers, chills, nausea, or vomiting. She was able to walk 8 times around the rn today on separate occasions. She had a little bit of discomfort associated with wound VAC change, but outside of this, she feels like she has turned the corner had a really good day today. She blayne es any shortness of breath or chest discomfort. PHYSICAL EXAMINATION: VITAL SIGNS: Afebrile, pulse 69, blood pressure 126/68, respirations 18, saturation 93% on room air. GENERAL: Patient is awake and alert, in no apparent distress. LUNGS: Decent air entry with no prolonged expiratory phase, wheezing, rhonchi, or crackles. HEART: Normal rate, regular. ABDOMEN: Soft, nontender, nondistended. Bowel sounds are positive. MUSCULOSKELETAL: No cyanosis or clubbing. There is no pitting in the bilateral lower extremities. There is a wound VAC in place in the right medial thigh. NEUROLOGIC: Grossly nonfocal. LABORATORY DATA: WBC 17.0, hemoglobin 11.6, platelets 362,000. INR 1.2. PH 7.4, pCO2 of 44. Blood sugar ranges from 87 to 236. ASSESSMENT: 1. Acute hypoxic respiratory failure. 2. Necrotizing fasciitis. 3. Tobacco abuse. PLAN: Supportive care will be continued including antibiotics. We will continue mobilizing the bella ent as much she tolerates. Pulmonary Critical Care will continue to follow, intermittently during hospital stay. Dr. Araiza will assume care on Thursday. If she decompensates sooner, please give me a phone call.
[2017-05-10] MEDS: Clindamycin 150 MG CAP PO SCH ×4 (04:30→21:38)
[2017-05-10] MEDS: Zinc Sulfate 220 MG CAP PO SCH (08:40)
[2017-05-10] MEDS: Polyethylene Glycol 3350 17 GM Packet PO SCH (08:41)
[2017-05-10] MEDS: Ascorbic Acid 500 mg Chewable Tablet PO SCH (08:41)
[2017-05-10] MEDS: Triamterene/Hydrochlorothiazide 37.5 mg/25 mg Tablet PO SCH (08:41)
[2017-05-10] MEDS: Multivitamin W/ Minerals 1 TAB PO SCH (08:41)
[2017-05-10] MEDS: Famotidine 20 MG TAB PO SCH ×2 (08:41→21:38)
[2017-05-10] MEDS: Fentanyl 100 MCG/2 ML VIAL SLOW IVP PRN (09:25)
[2017-05-10] MEDS ORDERED: Fluconazole 100 MG TAB PO SCH (11:15)
--- NOTE | 2017-05-10 13:20 | PRG ---
DATE OF SERVICE: 05/10/2017 SUBJECTIVE: Ms. Castrejon is feeling fine today. She has had problems with her VAC leaking, but wound care was able to get a seal. She has had a lot of vaginal drainage consistent with a yeast infectio n as well as some itching and discomfort in that area. She is still having nausea with her antibioti cs, but this is tolerable. She is afebrile with normal vital signs. Her VAC is in good position. ASSESSMENT AND PLAN: Necrotizing fasciitis of the right thigh doing well. She does have a yeast inf ection related to her antibiotics and I have ordered a one time dose of Diflucan. We will continue c urrent management with VAC and antibiotics.
[2017-05-10] MEDS: Ondansetron HCl/PF 4 MG/2 ML Vial IVP PRN (14:37)
[2017-05-10] MEDS: Ibuprofen 800 MG TAB PO PRN (14:37)
[2017-05-10] MEDS: HYDROcodone/Acetaminophen 10/325 mg Tablet PO PRN (21:38)
[2017-05-11] MEDS: Clindamycin 150 MG CAP PO SCH ×4 (03:15→21:25)
[2017-05-11] MEDS: Ascorbic Acid 500 mg Chewable Tablet PO SCH (08:43)
[2017-05-11] MEDS: Famotidine 20 MG TAB PO SCH ×2 (08:43→21:25)
[2017-05-11] MEDS: Zinc Sulfate 220 MG CAP PO SCH (08:43)
[2017-05-11] MEDS: Multivitamin W/ Minerals 1 TAB PO SCH (08:44)
[2017-05-11] MEDS: Polyethylene Glycol 3350 17 GM Packet PO SCH (08:44)
[2017-05-11] MEDS: Fentanyl 100 MCG/2 ML VIAL SLOW IVP PRN (11:14)
[2017-05-11] MEDS: HYDROcodone/Acetaminophen 10/325 mg Tablet PO PRN ×3 (11:25→23:40)
[2017-05-11] MEDS: Triamterene/Hydrochlorothiazide 37.5 mg/25 mg Tablet PO SCH (12:56)
--- NOTE | 2017-05-11 15:48 | PDOC.GSPN ---
Surgery Progress Note: Subj - Subjective Patient reports: no new complaints Narrative: still having severe pain with dressing changes Surgery Progress Note: Obj - Vital signs Vital signs: Vital Signs - Most Recent Temp Pulse Resp BP Pulse Ox 98.6 F 70 16 100/62 92 L 05/11/17 12:55 05/11/17 12:55 05/11/17 12:55 05/11/17 12:55 05/11/17 12:55 - Physical Exam General: no distress Cardiovascular: regular rate and rhythm Respiratory: clear to auscultation Abdomen: soft, non tender, nondistended Wound: wound vac (wound seen on dressing change. There is good granulation now in the entire wound. No necrosis, no purulence) Surgery Progress Note: Results - Labs Result Diagrams: 05/04/17 05:30 05/04/17 05:30 Lab results: Laboratory Results - last 24 hr 05/11/17 05/11/17 05:32 12:56 POC Glucose 129 H 104 Surgery Progress Note: A/P - Problem (1) Necrotizing fasciitis Current Visit: Yes Code(s): M72.6 - NECROTIZING FASCIITIS Status: Acute - Plan Plan: Needs continued inpatient wound care for this high risk complex wound. She has home vac approved but not going to be ready for discharge until the end of the week at least
[2017-05-11] MEDS: Ondansetron HCl/PF 4 MG/2 ML Vial IVP PRN (17:36)
[2017-05-11] MEDS: Zolpidem Tartrate 5 MG TAB PO PRN (23:41)
[2017-05-12] MEDS: Clindamycin 150 MG CAP PO SCH ×4 (03:46→21:48)
[2017-05-12] MEDS: Triamterene/Hydrochlorothiazide 37.5 mg/25 mg Tablet PO SCH (08:36)
[2017-05-12] MEDS: Famotidine 20 MG TAB PO SCH ×2 (08:36→21:48)
[2017-05-12] MEDS: Zinc Sulfate 220 MG CAP PO SCH (08:37)
[2017-05-12] MEDS: Fluconazole 100 MG TAB PO SCH (08:37)
[2017-05-12] MEDS: Ascorbic Acid 500 mg Chewable Tablet PO SCH (08:38)
[2017-05-12] MEDS: Multivitamin W/ Minerals 1 TAB PO SCH (08:38)
[2017-05-12] MEDS: Ibuprofen 800 MG TAB PO PRN ×2 (08:41→18:05)
[2017-05-12] MEDS: traMADol HCl 50 MG TAB PO PRN ×2 (08:42→18:05)
[2017-05-12] MEDS: Ondansetron ODT 4 MG TAB PO PRN (10:01)
[2017-05-12] MEDS: Polyethylene Glycol 3350 17 GM Packet PO SCH (10:01)
--- NOTE | 2017-05-12 16:29 | PDOC.GSPN ---
Surgery Progress Note: Subj - Subjective Patient reports: no new complaints Narrative: Rachael helped with sleep last night Surgery Progress Note: Obj - Vital signs Vital signs: Vital Signs - Most Recent Temp Pulse Resp BP Pulse Ox 97.4 F L 65 20 119/70 95 05/12/17 15:39 05/12/17 15:39 05/12/17 15:39 05/12/17 15:39 05/12/17 15:39 - Physical Exam General: no distress Cardiovascular: regular rate and rhythm Respiratory: clear to auscultation Abdomen: soft, non tender Wound: wound vac Surgery Progress Note: Results - Labs Result Diagrams: 05/04/17 05:30 05/04/17 05:30 Lab results: Laboratory Results - last 24 hr 05/12/17 05/12/17 05/12/17 05:43 12:04 15:39 POC Glucose 103 125 H 134 H Surgery Progress Note: A/P - Problem (1) Necrotizing fasciitis Current Visit: Yes Code(s): M72.6 - NECROTIZING FASCIITIS Status: Acute (2) Diabetes mellitus Current Visit: Yes Code(s): E11.9 - TYPE 2 DIABETES MELLITUS WITHOUT COMPLICATIONS Status: Acute - Plan Plan: Continue dressing changes. Not ready for DC until this complex wound starts to granulate
[2017-05-12] MEDS: Zolpidem Tartrate 5 MG TAB PO PRN (21:48)
[2017-05-13] MEDS: Clindamycin 150 MG CAP PO SCH ×4 (03:50→21:50)
--- NOTE | 2017-05-13 08:10 | PDOC.GSPN ---
Surgery Progress Note: Subj - Subjective Patient reports: no new complaints Surgery Progress Note: Obj - Vital signs Vital signs: Vital Signs - Most Recent Temp Pulse Resp BP Pulse Ox 98.2 F 68 16 148/81 H 96 05/13/17 04:44 05/13/17 04:44 05/13/17 04:44 05/13/17 04:44 05/13/17 04:44 - Physical Exam General: no distress Cardiovascular: regular rate and rhythm Respiratory: clear to auscultation Wound: wound vac Surgery Progress Note: Results - Labs Result Diagrams: 05/04/17 05:30 05/04/17 05:30 Lab results: Laboratory Results - last 24 hr 05/12/17 05/13/17 20:30 05:46 POC Glucose 122 H 100 Surgery Progress Note: A/P - Problem (1) Necrotizing fasciitis Current Visit: Yes Code(s): M72.6 - NECROTIZING FASCIITIS Status: Acute (2) Diabetes mellitus Current Visit: Yes Code(s): E11.9 - TYPE 2 DIABETES MELLITUS WITHOUT COMPLICATIONS Status: Acute - Plan Plan: Needs to stay thru weekend until more granulation developing. Wound will not heal and patient will bounce back if discharged.
[2017-05-13] MEDS: Ascorbic Acid 500 mg Chewable Tablet PO SCH (08:29)
[2017-05-13] MEDS: Triamterene/Hydrochlorothiazide 37.5 mg/25 mg Tablet PO SCH (08:29)
[2017-05-13] MEDS: Zinc Sulfate 220 MG CAP PO SCH (08:29)
[2017-05-13] MEDS: Multivitamin W/ Minerals 1 TAB PO SCH (08:29)
[2017-05-13] MEDS: Fluconazole 100 MG TAB PO SCH (08:29)
[2017-05-13] MEDS: Polyethylene Glycol 3350 17 GM Packet PO SCH (08:30)
[2017-05-13] MEDS: Famotidine 20 MG TAB PO SCH ×2 (08:30→21:50)
[2017-05-13] MEDS: HYDROcodone/Acetaminophen 10/325 mg Tablet PO PRN ×2 (10:24→18:40)
[2017-05-13] MEDS: Zolpidem Tartrate 5 MG TAB PO PRN (21:50)
[2017-05-14] MEDS: Clindamycin 150 MG CAP PO SCH ×4 (03:40→21:18)
[2017-05-14] MEDS: HYDROcodone/Acetaminophen 10/325 mg Tablet PO PRN ×2 (09:22→16:12)
[2017-05-14] MEDS: Triamterene/Hydrochlorothiazide 37.5 mg/25 mg Tablet PO SCH (09:25)
[2017-05-14] MEDS: Ascorbic Acid 500 mg Chewable Tablet PO SCH (09:25)
[2017-05-14] MEDS: Famotidine 20 MG TAB PO SCH ×2 (09:25→21:24)
[2017-05-14] MEDS: Fluconazole 100 MG TAB PO SCH (09:25)
[2017-05-14] MEDS: Zinc Sulfate 220 MG CAP PO SCH (09:25)
[2017-05-14] MEDS: Multivitamin W/ Minerals 1 TAB PO SCH (09:26)
[2017-05-14] MEDS: Polyethylene Glycol 3350 17 GM Packet PO SCH (09:26)
[2017-05-14] MEDS: Ondansetron HCl/PF 4 MG/2 ML Vial IVP PRN (10:33)
[2017-05-14] MEDS: Fentanyl 100 MCG/2 ML VIAL SLOW IVP PRN (10:33)
--- NOTE | 2017-05-14 14:41 | PDOC.GSPN ---
Surgery Progress Note: Subj - Subjective Patient reports: no new complaints (dressing change slightly improved today) Surgery Progress Note: Obj - Vital signs Vital signs: Vital Signs - Most Recent Temp Pulse Resp BP Pulse Ox 98.1 F 66 16 151/73 H 91 L 05/14/17 12:03 05/14/17 12:03 05/14/17 12:03 05/14/17 12:03 05/14/17 12:03 - Physical Exam General: no distress Cardiovascular: regular rate and rhythm Respiratory: clear to auscultation Abdomen: soft, non tender Wound: wound vac (the surrounding yeast changes are improved) Surgery Progress Note: Results - Labs Result Diagrams: 05/04/17 05:30 05/04/17 05:30 Lab results: Laboratory Results - last 24 hr 05/14/17 04:35 POC Glucose 114 H Surgery Progress Note: A/P - Problem (1) Necrotizing fasciitis Current Visit: Yes Code(s): M72.6 - NECROTIZING FASCIITIS Status: Acute (2) Diabetes mellitus Current Visit: Yes Code(s): E11.9 - TYPE 2 DIABETES MELLITUS WITHOUT COMPLICATIONS Status: Acute - Plan Plan: Plan wound vac thru weekend and discharge next week if wound granulating
[2017-05-14] MEDS: Zolpidem Tartrate 5 MG TAB PO PRN (21:20)
[2017-05-14] MEDS: Ibuprofen 800 MG TAB PO PRN (21:20)
[2017-05-14] MEDS: traMADol HCl 50 MG TAB PO PRN (21:25)
[2017-05-15] MEDS: Ibuprofen 800 MG TAB PO PRN ×2 (03:25→10:43)
[2017-05-15] MEDS: Clindamycin 150 MG CAP PO SCH ×4 (03:25→20:15)
[2017-05-15] MEDS: traMADol HCl 50 MG TAB PO PRN ×2 (03:25→10:43)
[2017-05-15] MEDS: Ascorbic Acid 500 mg Chewable Tablet PO SCH (08:49)
[2017-05-15] MEDS: Famotidine 20 MG TAB PO SCH ×2 (08:49→20:49)
[2017-05-15] MEDS: Multivitamin W/ Minerals 1 TAB PO SCH (08:49)
[2017-05-15] MEDS: Zinc Sulfate 220 MG CAP PO SCH (08:49)
[2017-05-15] MEDS: Polyethylene Glycol 3350 17 GM Packet PO SCH (08:49)
[2017-05-15] MEDS: Fluconazole 100 MG TAB PO SCH (08:50)
[2017-05-15] MEDS: Triamterene/Hydrochlorothiazide 37.5 mg/25 mg Tablet PO SCH (08:50)
[2017-05-15] MEDS: Ondansetron HCl/PF 4 MG/2 ML Vial IVP PRN (08:55)
[2017-05-15] MEDS ORDERED: HYDROcodone/Acetaminophen 10/325 mg Tablet PO PRN (13:00)
--- NOTE | 2017-05-15 14:52 | PDOC.GSPN ---
Surgery Progress Note: Subj - Subjective Patient reports: no new complaints Surgery Progress Note: Obj - Vital signs Vital signs: Vital Signs - Most Recent Temp Pulse Resp BP Pulse Ox 98.1 F 76 16 123/74 93 L 05/15/17 11:05 05/15/17 11:05 05/15/17 11:05 05/15/17 11:05 05/15/17 11:05 - Physical Exam General: no distress Cardiovascular: regular rate and rhythm Respiratory: clear to auscultation Wound: wound vac (yeast skin changes in the groin much improved) Surgery Progress Note: Results - Labs Result Diagrams: 05/04/17 05:30 05/04/17 05:30 Lab results: Laboratory Results - last 24 hr 05/15/17 05/15/17 05:25 11:07 POC Glucose 108 141 H Surgery Progress Note: A/P - Problem (1) Necrotizing fasciitis Current Visit: Yes Code(s): M72.6 - NECROTIZING FASCIITIS Status: Acute Assessment and Plan: Plan is wound vac in hospital into next week. She has home vac approved. Thursday morning will remove the urinary catheter and see if wound vac stays stuck (2) Diabetes mellitus Current Visit: Yes Code(s): E11.9 - TYPE 2 DIABETES MELLITUS WITHOUT COMPLICATIONS Status: Acute
[2017-05-15] MEDS: HYDROcodone/Acetaminophen 10/325 mg Tablet PO PRN (18:09)
[2017-05-15] MEDS ORDERED: Clindamycin 150 MG CAP PO SCH (20:45)
[2017-05-15] MEDS: Ondansetron ODT 4 MG TAB PO PRN (20:49)
[2017-05-15] MEDS: Zolpidem Tartrate 5 MG TAB PO PRN (21:23)
[2017-05-16] MEDS: Clindamycin 150 MG CAP PO SCH ×4 (02:20→20:31)
[2017-05-16] MEDS: Ondansetron HCl/PF 4 MG/2 ML Vial IVP PRN ×2 (09:19→16:34)
[2017-05-16] MEDS: Zinc Sulfate 220 MG CAP PO SCH (09:19)
[2017-05-16] MEDS: Polyethylene Glycol 3350 17 GM Packet PO SCH (09:19)
[2017-05-16] MEDS: Fluconazole 100 MG TAB PO SCH (09:19)
[2017-05-16] MEDS: Ascorbic Acid 500 mg Chewable Tablet PO SCH (09:20)
[2017-05-16] MEDS: Famotidine 20 MG TAB PO SCH ×2 (09:20→20:30)
[2017-05-16] MEDS: Triamterene/Hydrochlorothiazide 37.5 mg/25 mg Tablet PO SCH (09:20)
[2017-05-16] MEDS: Multivitamin W/ Minerals 1 TAB PO SCH (09:20)
[2017-05-16] MEDS: HYDROcodone/Acetaminophen 10/325 mg Tablet PO PRN (09:50)
[2017-05-16] MEDS: Fentanyl 100 MCG/2 ML VIAL SLOW IVP PRN ×2 (10:27→20:27)
[2017-05-16] MEDS: traMADol HCl 50 MG TAB PO PRN ×2 (11:29→18:36)
[2017-05-16] MEDS: Ibuprofen 800 MG TAB PO PRN ×2 (11:29→18:36)
--- NOTE | 2017-05-16 18:05 | PRG ---
DATE OF SERVICE: 05/16/2017 SUBJECTIVE: Ms. Clarke Castrejon is doing well today. She has no complaints. Her wound VAC remains in tact. Huggins was in place. Plan is to remove her Huggins Thursday morning. OBJECTIVE: VITAL SIGNS: 98.4 degrees, 66, 137/66. LUNGS: Clear to auscultation. CARDIAC: Regular rate and rhythm without murmur or gallop. ABDOMEN: Soft, nontender, no masses. LABORATORY DATA: None. ASSESSMENT AND PLAN: Doing well. Continue wound VAC application, change ThursdayBhavna out Thursday mo rning.
[2017-05-16] MEDS: Zolpidem Tartrate 5 MG TAB PO PRN (20:49)
[2017-05-17] MEDS: Clindamycin 150 MG CAP PO SCH ×4 (03:43→20:49)
[2017-05-17] MEDS: traMADol HCl 50 MG TAB PO PRN ×3 (08:30→23:09)
[2017-05-17] MEDS: Ascorbic Acid 500 mg Chewable Tablet PO SCH (09:32)
[2017-05-17] MEDS: Famotidine 20 MG TAB PO SCH ×2 (09:32→20:49)
[2017-05-17] MEDS: Fluconazole 100 MG TAB PO SCH (09:32)
[2017-05-17] MEDS: Polyethylene Glycol 3350 17 GM Packet PO SCH (09:32)
[2017-05-17] MEDS: Multivitamin W/ Minerals 1 TAB PO SCH (09:33)
[2017-05-17] MEDS: Triamterene/Hydrochlorothiazide 37.5 mg/25 mg Tablet PO SCH (09:33)
[2017-05-17] MEDS: Zinc Sulfate 220 MG CAP PO SCH (09:38)
--- NOTE | 2017-05-17 12:34 | PRG ---
DATE OF SERVICE: 05/17/2017 SUBJECTIVE: Ms. Clarke Castrejon is seen today by Dr. Michael, who will be away the rest of the week. OBJECTIVE: VITAL SIGNS: Temperature 99.2 degrees, pulse 84 and blood pressure 123/71. LUNGS: Clear to auscultation. CARDIAC: Regular rate and rhythm without murmur or gallop. ABDOMEN: Soft and nontender. No masses. Huggins in place. ASSESSMENT AND PLAN: Wound VAC is to be changed tomorrow, Thursday. We will remove her Huggins catheter tonight and give her a trial without and see how she does. Overall, she is doing well. Expect disc harge home, possibly later this week.
[2017-05-17] MEDS: Ibuprofen 800 MG TAB PO PRN ×2 (16:37→23:10)
[2017-05-17] MEDS: Zolpidem Tartrate 5 MG TAB PO PRN (23:09)
[2017-05-18] MEDS: Clindamycin 150 MG CAP PO SCH ×4 (03:03→21:43)
[2017-05-18] MEDS: traMADol HCl 50 MG TAB PO PRN ×3 (05:55→21:44)
[2017-05-18] MEDS: Ibuprofen 800 MG TAB PO PRN ×3 (05:55→21:44)
[2017-05-18] MEDS: Multivitamin W/ Minerals 1 TAB PO SCH (08:42)
[2017-05-18] MEDS: Zinc Sulfate 220 MG CAP PO SCH (08:42)
[2017-05-18] MEDS: Triamterene/Hydrochlorothiazide 37.5 mg/25 mg Tablet PO SCH (08:42)
[2017-05-18] MEDS: Ascorbic Acid 500 mg Chewable Tablet PO SCH (08:42)
[2017-05-18] MEDS: Polyethylene Glycol 3350 17 GM Packet PO SCH (08:42)
[2017-05-18] MEDS: Famotidine 20 MG TAB PO SCH ×2 (08:42→21:43)
[2017-05-18] MEDS: HYDROcodone/Acetaminophen 10/325 mg Tablet PO PRN (08:50)
[2017-05-18] MEDS: Ondansetron HCl/PF 4 MG/2 ML Vial IVP PRN (08:54)
[2017-05-18] MEDS: Fentanyl 100 MCG/2 ML VIAL SLOW IVP PRN (09:01)
--- NOTE | 2017-05-18 20:59 | PRG ---
DATE OF SERVICE: 05/18/2017 Clarke Castrejon is doing well today. Her wounds look great. There is no active infection. The patien t's wound VAC was changed. She refused Huggins removal last night and this morning. Nurses called me. I suggested they discontinue the Huggins and stressed the importance of this to the patient. The pat ieliborio, on discharge, probably does not need any more oral antibiotics. Her PICC line can be removed a nd plan will be to discharge her home on Thursday.
[2017-05-18] MEDS: Zolpidem Tartrate 5 MG TAB PO PRN (21:48)
[2017-05-19] MEDS: Clindamycin 150 MG CAP PO SCH ×4 (04:12→21:54)
[2017-05-19] MEDS: Ibuprofen 800 MG TAB PO PRN ×3 (04:13→21:54)
[2017-05-19] MEDS: traMADol HCl 50 MG TAB PO PRN ×3 (04:13→21:54)
[2017-05-19] MEDS: Zinc Sulfate 220 MG CAP PO SCH (08:21)
[2017-05-19] MEDS: Ascorbic Acid 500 mg Chewable Tablet PO SCH (08:22)
[2017-05-19] MEDS: Ondansetron HCl/PF 4 MG/2 ML Vial IVP PRN (08:22)
[2017-05-19] MEDS: Triamterene/Hydrochlorothiazide 37.5 mg/25 mg Tablet PO SCH (08:22)
[2017-05-19] MEDS: Multivitamin W/ Minerals 1 TAB PO SCH (08:22)
[2017-05-19] MEDS: Famotidine 20 MG TAB PO SCH ×2 (08:22→21:54)
[2017-05-19] MEDS: Polyethylene Glycol 3350 17 GM Packet PO SCH (08:23)
--- NOTE | 2017-05-19 16:20 | PRG ---
DATE OF SERVICE: 05/19/2017 Ms. Mir is doing well. Vital signs stable, afebrile. She has no new complaints. Her Huggins has be en removed. She is tolerating that well and wound VAC has remained intact. Plan is discharge home t omorrow with outpatient wound VAC care twice a week. She should be able to transition to a non-VAC c are in the next 2 weeks. When she transitions to non-VAC care, her wound care can be transferred to [facility] and outpatient wound care can arrange that.
[2017-05-20] MEDS: Clindamycin 150 MG CAP PO SCH ×2 (04:17→10:41)
[2017-05-20] MEDS: Ibuprofen 800 MG TAB PO PRN (04:17)
[2017-05-20] MEDS: Multivitamin W/ Minerals 1 TAB PO SCH (09:34)
[2017-05-20] MEDS: Zinc Sulfate 220 MG CAP PO SCH (09:35)
[2017-05-20] MEDS: Famotidine 20 MG TAB PO SCH (09:35)
[2017-05-20] MEDS: Ascorbic Acid 500 mg Chewable Tablet PO SCH (09:35)
[2017-05-20] MEDS: Triamterene/Hydrochlorothiazide 37.5 mg/25 mg Tablet PO SCH (09:35)
[2017-05-20] MEDS: Polyethylene Glycol 3350 17 GM Packet PO SCH (09:36)
[2017-05-20] MEDS: HYDROcodone/Acetaminophen 10/325 mg Tablet PO PRN (10:40)
[2017-05-20] MEDS: Ondansetron HCl/PF 4 MG/2 ML Vial IVP PRN (10:44)
[2017-05-20] MEDS ORDERED: Fentanyl 100 MCG/2 ML VIAL SLOW IVP SCH (10:45)
[2017-05-20 12:10] VITALS: BP 134/70; TEMP 98.6
--- NOTE | 2017-05-20 13:19 | PRG ---
DATE OF SERVICE: 05/20/2017 Ms. Castrejon is doing well today. Her wound looks very good. We will discontinue all oral antibiotic s. Dr. Michael has left oral analgesics on her chart for home use. She has outpatient Wound Care an d wound VAC arranged and VAC change Thursday. I have asked her to call Dr. Michael to view her wound i n Wound Care. She will resume her home medications. Activity as tolerated. Her Huggins has been marilyn kerry. Her PICC line removed. She is tolerating wound care dressing changes today just fine without n arcotics.
== END 2017-05-20 15:29 | disposition home or self-care (01) | DRG 500 ==
LOC: ERS 17:57 → SDC/OP 20:24 → SURG B 21:38 → IMCU/EMU 04-30 15:00 → CCU 04-30 15:15 → SJJU 05-03 09:32
PROVIDERS: ADMIT Surgery; ATTEND Surgery
PROC: 0JDL3ZZ Extraction of Right Upper Leg Subcutaneous Tissue and Fascia, Percutaneous Approach (ICD-10-PCS; 2017-04-26)
PROC: 0JD83ZZ Extraction of Abdomen Subcutaneous Tissue and Fascia, Percutaneous Approach (ICD-10-PCS; 2017-04-26)
PROC: 0JDB3ZZ Extraction of Perineum Subcutaneous Tissue and Fascia, Percutaneous Approach (ICD-10-PCS; 2017-04-26)
PROC: 0KDQ0ZZ Extraction of Right Upper Leg Muscle, Open Approach (ICD-10-PCS; 2017-04-28)
PROC: 02HV33Z Insertion of Infusion Device into Superior Vena Cava, Percutaneous Approach (ICD-10-PCS; 2017-04-28)
PROC: 0HD9XZZ Extraction of Perineum Skin, External Approach (ICD-10-PCS; 2017-04-30)
PROC: 0HDHXZZ Extraction of Right Upper Leg Skin, External Approach (ICD-10-PCS; 2017-04-30)
PROC: 0KBK0ZZ Excision of Right Abdomen Muscle, Open Approach (ICD-10-PCS; principal; 2017-05-02)
PROC: 0KBQ0ZZ Excision of Right Upper Leg Muscle, Open Approach (ICD-10-PCS; 2017-05-02)
PROC: 0UBM0ZZ Excision of Vulva, Open Approach (ICD-10-PCS; 2017-05-02)
DX: M72.6 Necrotizing fasciitis (principal); J96.01 Acute respiratory failure with hypoxia; B37.3 Candidiasis of vulva and vagina; E03.9 Hypothyroidism, unspecified; E11.9 Type 2 diabetes mellitus without complications; F17.210 Nicotine dependence, cigarettes, uncomplicated; J98.11 Atelectasis; I10 Essential (primary) hypertension; Z79.84 Long term (current) use of oral hypoglycemic drugs; Z88.6 Allergy status to analgesic agent; Z88.0 Allergy status to penicillin; T36.8X5A Adverse effect of other systemic antibiotics, initial encounter; Y92.230 Patient room in hospital as the place of occurrence of the external cause
CPT/HCPCS: 36415; 36416; 71045; 74177; 80048; 80053; 80202; 82330; 82550; 82803; 83605; 83735; 84100; 85007; 85025; 85027; 85049; 85300; 85362; 85379; 85384; 85610; 85652; 85730; 86140; 87040; 87070; 87149; 87205; 94660; 94760; 96365; 96375; G8978-GP-CI; G8978-GP-CK; G8979-GP-CI; G8979-GP-CJ; J0131; J0360; J1100; J1940; J1956; J2001; J2250; J2270; J2405; J2543; J2704; J3010; J3370; J3490; J7050; J7620; Q0162

== ENCOUNTER 2017-05-21 11:51 | Outpatient (CLI) | payer SELFPAY ==
[2017-05-21] MEDS ORDERED: Sodium Chloride 0.9% 15 ML NEB ONE (16:15)
[2017-05-21] MEDS ORDERED: Lidocaine 2% Jelly 5 ML TUBE ONE (16:15)
== END 2017-05-21 11:52 | disposition home or self-care (01) ==
LOC: WCC 11:51
PROVIDERS: ATTEND Family Medicine
DX: T81.89XD Other complications of procedures, not elsewhere classified, subsequent encounter (principal)
CPT/HCPCS: 97606; A4218

== ENCOUNTER 2017-05-25 12:51 | Outpatient (CLI) | payer SELFPAY ==
[2017-05-25] MEDS ORDERED: Sodium Chloride 0.9% 15 ML NEB ONE (19:53)
== END 2017-05-25 12:52 | disposition home or self-care (01) ==
LOC: WCC 12:51
PROVIDERS: ATTEND Family Medicine
DX: T81.89XA Other complications of procedures, not elsewhere classified, initial encounter (principal)
CPT/HCPCS: 36416; 97602; A4218

== ENCOUNTER 2017-05-27 07:49 | Outpatient (CLI) | payer SELFPAY ==
[2017-05-29] MEDS ORDERED: Sodium Chloride 0.9% 15 ML NEB ONE (12:32)
== END 2017-05-27 07:50 | disposition home or self-care (01) ==
LOC: WCC 07:49
PROVIDERS: ATTEND Family Medicine
DX: T81.89XD Other complications of procedures, not elsewhere classified, subsequent encounter (principal)
CPT/HCPCS: 97602

== ENCOUNTER 2017-05-27 08:43 | Emergency (ER) | payer SELFPAY ==
[2017-05-27] MEDS ORDERED: ISOVUE-370 76%-LOCM 1 ML ONE (09:34)
[2017-05-27 09:43] LABS: #Eosinphils 0.5 thou/uL (0.0-0.7); #Lymphocytes 1.6 thou/uL (1.20-3.40); #Monocytes 0.6 thou/uL (0.11-0.59); #Neutrophils 5.1 thou/uL (1.40-6.50); %Basophils 0.5 % (0.0-1.0); %Eosinophils 6.3 % (0.0-10.0); %Monocytes 7.4 % (0.0-10.0); %Neutrophils 65.9 % (42.0-75.0); Hemoglobin 11.9 g/dL (12.0-16.0); Mean Corpuscular HGB CONC 32.5 g/dL (32.0-36.0); Mean Corpuscular Hemoglobin 29.1 pg (27.0-31.0); Mean Corpuscular Volume 89.6 fl (81.0-99.0); Mean Platelet Volume 6.8 fL (7.4-10.4); Platelet Count 288 thou/uL (130-400); RBC Distribution Width 13.2 % (11.5-14.5); Red Blood Cell (RBC) Count 4.08 mill/uL (4.20-5.40); White Blood Cell (WBC) Count 7.8 thou/uL (4.8-10.8)
[2017-05-27] MEDS ORDERED: Ondansetron ODT 4 MG TAB ONE (09:57)
[2017-05-27 10:05] LABS: ALT (SGPT) 23 U/L (8-55); AST (SGOT) 19 U/L (5-34); Albumin 3.6 g/dL (3.5-5.0); Alkaline Phosphatase 90 U/L (40-150); Anion Gap 13 mmol/L (10-20); BUN (Urea Nitrogen) 14 mg/dL (9.8-20.1); Bilirubin, Total 0.3 mg/dL (0.2-1.2); Calc. Creatinine Clearance 0 mL/min (70-130); Calcium 9.1 mg/dL (7.8-10.44); Carbon Dioxide 26 mmol/L (22-29); Chloride 105 mmol/L (98-107); Estimated GFR-MDRD 85; Globulin 3.1 g/dL (2.4-3.5); Glucose 158 mg/dL (70-105); PTT 32.4 SEC (22.9-36.1); Potassium 3.4 mmol/L (3.5-5.1); Protein, Total 6.7 g/dL (6.0-8.3); Prothrombin Time 13.7 SEC (12.0-14.7); Sodium 141 mmol/L (136-145)
[2017-05-27 10:06] LABS: D-Dimer Test 1.89 *mcg/mL (0.27-0.43)
--- NOTE | 2017-05-27 10:43 | ULT ---
BILATERAL LOWER EXTREMITY VENOUS DOPPLER ULTRASOUND: 05/27/2017 HISTORY: Pain. Swelling. Assess for DVT. COMPARISON: None. TECHNIQUE: Multiplanar galindo-scale sonographic imaging of the venous structures of the bilateral lower extremitie s obtained with color-flow and spectral analysis, as described below. FINDINGS: The right common femoral vein, greater saphenous vein, and profunda femoral vein, and the proximal as pect of the femoral vein could not be assessed secondary to bandaging and open wound in that region f or the performing manager rn. The right femoral vein in the mid thigh and distal thigh is patent. The right popliteal vein and posterior tibial vein are patent. The left common femoral vein, greater saphenous vein, profunda femoral vein, femoral vein, popliteal vein, and posterior tibial vein are patent with no evidence for deep venous thrombosis on the left. IMPRESSION: No evidence for deep venous thrombosis of either lower extremity. Please note that the right common femoral vein, greater saphenous vein, profunda femoral vein, and proximal femoral vein could not be a ssessed, however. POS: ESVIN
--- NOTE | 2017-05-27 14:42 | CT ---
CT PELVIS CT BILATERAL LOWER EXTREMITIES: Date: 05/27/17 HISTORY: Necrotizing fasciitis involving the right inguinal region/proximal lower extremity. Evaluate for veno us thrombosis. COMPARISON: None. TECHNIQUE: Axial imaging of the pelvis and lower extremities is performed. Sagittal and coronal three-dimensiona l reformatted images are submitted for interpretation. FINDINGS: PELVIS CT: No mass, lymphadenopathy, free air, or free fluid. Visualized solid organs and alimentary canal are u nremarkable. Urinary bladder is unremarkable. LEFT LOWER EXTREMITY: Suboptimal evaluation of the arterial and venous structures. Grossly, no abnormality in the arterial structures. The veins of the left lower extremity cannot be assessed. RIGHT LOWER EXTREMITY: There is edema, as well as induration of the subcutaneous fat along the right groin and medial aspect of the proximal right lower extremity. There is loss of soft tissue suggesting fasciitis. There is a symmetric edema of the right lower extremity. Suboptimal evaluation of the arterial and venous system due to poor contrast bolus. Grossly, no evidence of high grade arterial stenosis to the level of the popliteal artery. The remainder of the arterial system cannot be assessed. The venous system cannot be adequately assessed. No obvious filling defects are appreciated. IMPRESSION: Suboptimal evaluation. No obvious filing defects are appreciated in the right or left lower extremity . The right femoral vein appears to be grossly unremarkable. The size is similar to the contralateral size. No evidence of adjacent soft tissue stranding. POS: [facility]
== END 2017-05-27 15:02 | disposition home or self-care (01) ==
LOC: ERS 08:43
DX: I89.0 Lymphedema, not elsewhere classified (principal); E11.9 Type 2 diabetes mellitus without complications; E03.9 Hypothyroidism, unspecified; I10 Essential (primary) hypertension; F17.210 Nicotine dependence, cigarettes, uncomplicated
CPT/HCPCS: 36415; 72193; 80053; 85025; 85379; 85610; 85730; 93970; Q0162

== ENCOUNTER 2017-06-04 08:10 | Outpatient (CLI) | payer SELFPAY ==
--- NOTE | 2017-06-04 14:28 | HP ---
DATE OF SERVICE: 06/04/2017 HISTORY OF PRESENT ILLNESS: Ms. Clarke Castrejon is a very pleasant 56-year-old, who presents to the [facility] for evaluation of multiple wounds of the right perineum and thigh subsequent to surgery fo r necrotizing fasciitis of the right groin, mons, labia, thigh and groin crease on 05/02/2017. The p atient underwent the preceding procedure by Dr. Damion Foster on 05/02/2017. At the time of surgery , the patient also underwent wound VAC application. The patient has completed a course of negative p ressure therapy and is now receiving wet to dry dressing changes for her wounds. Ms. Castrejon has no complaints today. She denies any fever or chills. PAST MEDICAL HISTORY: 1. Chiari malformation with headaches. 2. Diabetes mellitus. 3. Hypertension. 4. Hypothyroidism. PAST SURGICAL HISTORY: 1. Hysterectomy. 2. Wide local excision of 2 perianal masses. 3. Extensive debridement, wide local excision of necrotizing infection to right leg, perineum and gr oin. 4. Washout of wound, debridement of skin, subcutaneous fat, muscle, and fascia, placement of Instill wound VAC. 5. Debridement, washout and wound VAC placement by Wound Care team under anesthesia on 04/30/2017. 6. Surgery for necrotizing fasciitis of right groin, mons, labia, thigh, groin crease/wound VAC appl ication on 05/02/2017. MEDICATIONS: 1. Levothyroxine. 2. Antihypertensive. 3. Zinc. 4. Gabapentin. 5. B complex. ALLERGIES: PENICILLIN and CODEINE. SOCIAL HISTORY: Significant for tobacco use since age 10. The patient states that she has smoked up to 3-1/2 packs of cigarettes per day over this period of time. The patient admits to only the occas ional consumption of alcohol. FAMILY HISTORY: Significant for diabetes mellitus and coronary artery disease. The patient states s he has multiple relatives on the maternal side of her family, who were diagnosed with both diabetes m ellitus and coronary artery disease. PHYSICAL EXAMINATION: VITAL SIGNS: Temperature 97.8, pulse 101, respirations 19, blood pressure 169/76. Accu-Chek 150. GENERAL: A 56-year-old female lying on table in examination room, in no acute distress. HEENT: Normocephalic, atraumatic. NECK: No nuchal rigidity. CHEST: Clear to auscultation. CARDIOVASCULAR: Regular rate and rhythm. ABDOMEN: Soft. EXTREMITIES: Multiple wounds of the right perineum and thigh are present. Granulation tissue is pre sent within the margins of each wound. No purulent drainage is associated with any of the wounds. N o erythema of the skin surrounding any of the wounds is present. No maceration of the skin of the pe riwound of any of the wounds is noted. NEUROLOGIC: Grossly nonfocal. ASSESSMENT AND PLAN: 1. Multiple wounds of right perineum and thigh subsequent to surgery for necrotizing fasciitis of ri ght groin, mons, labia, thigh, and groin crease on 05/02/2017. The patient underwent the preceding p rocedure by Dr. Damion Foster. At surgery, the patient also underwent wound VAC application. The p rodolfo has completed a course of negative pressure therapy and is now performing wet to dry dressing changes for her wounds. Wet to dry dressing changes will be continued on a daily basis after cleansi ng and irrigation by the patient herself. No antibiotics will be prescribed today based upon the patricia earance of the wounds. I will see Ms. Mir again in two weeks. 2. Chiari malformation with headaches. 3. Diabetes mellitus. 4. Hypertension. 5. Hypothyroidism.
[2017-06-04] MEDS ORDERED: Sodium Chloride 0.9% 15 ML NEB ONE (17:14)
== END 2017-06-04 08:11 | disposition home or self-care (01) ==
LOC: WCC 08:10
PROVIDERS: ATTEND Family Medicine
DX: T81.89XD Other complications of procedures, not elsewhere classified, subsequent encounter (principal)
CPT/HCPCS: 36416; 97602; 99203; A4218; G0463

== ENCOUNTER 2017-06-17 10:43 | Outpatient (CLI) | payer SELFPAY ==
[~2017-06-17 10:43] MED LIST changes: -Dexamethasone 20 MG/5 ML VIAL ONE; -Glycopyrrolate 0.2 MG/ML 5 ML SYRINGE ONE; -ISOVUE-370 76%-LOCM 1 ML ONE; -Lidocaine 1% PF 5 ML VIAL ONE; -Ondansetron HCl/PF 4 MG/2 ML Vial ONE; +Sodium Chloride 0.9% 15 ML NEB ONE; -Succinylcholine Chloride 20 MG/ML 10 ml SYRINGE FS ONE
--- NOTE | 2017-06-17 12:23 | PRG ---
DATE OF SERVICE: 06/17/2017 HISTORY: Ms. Clarke Castrejon is a very pleasant 56-year-old who presents [facility] for evalu ation of multiple wounds of the right perineum and thigh subsequent to surgery for necrotizing fascii tis of the right groin, mons, labia, thigh and groin crease on 05/02/2017. The patient underwent the preceding procedure by Dr. Damion Foster on 05/02/2017. At the time of surgery, the patient also u nderwent wound VAC placement. The patient has completed a course of negative pressure therapy and is currently receiving wet to dry dressing changes for her wounds. The patient has no complaints today . She denies any fever or chills. PHYSICAL EXAMINATION: VITAL SIGNS: Temperature 98.2, pulse 87, respirations 19, blood pressure 134/62. Accu-Chek 117. EXTREMITIES: Multiple wounds of the right perineum and thigh are present. Granulation tissue is pre sent within the margins of each wound. No purulent drainage is associated with any of the wounds. N o cellulitis of the right perineum or thigh is appreciated. No maceration of the skin of the periwou nd of any of the wounds is noted. ASSESSMENT AND PLAN: 1. Multiple wounds of right perineum and thigh subsequent to surgery for necrotizing fasciitis of ri ght groin, mons, labia, thigh and groin crease on 05/02/2017. The patient underwent the preceding pr ocedure by Dr. Damion Foster. At surgery, the patient also underwent wound VAC placement. The bella ent completed a course of negative pressure therapy and is now performing wet to dry dressing changes for her wounds. Wet to dry dressing changes will be continued on a daily basis after cleansing and irrigation. The patient is performing her own dressing changes. I will see Ms. Clarke Castrejon again in 2 weeks. 2. Chiari malformation with headaches. 3. Diabetes mellitus. 4. Hypertension. 5. Hypothyroidism.
== END 2017-06-17 10:44 | disposition home or self-care (01) ==
LOC: WCC 10:43
PROVIDERS: ATTEND Family Medicine
DX: T81.89XD Other complications of procedures, not elsewhere classified, subsequent encounter (principal); R51 Headache; E11.9 Type 2 diabetes mellitus without complications; I10 Essential (primary) hypertension; E03.9 Hypothyroidism, unspecified; G93.5 Compression of brain
CPT/HCPCS: 97602; A4218

== ENCOUNTER 2017-06-24 09:02 | Outpatient (CLI) | payer SELFPAY | END 2017-06-24 09:03 | disposition home or self-care (01) | LOC: WCC 09:02 | PROVIDERS: ATTEND Family Medicine | DX: T81.89XD Other complications of procedures, not elsewhere classified, subsequent encounter (principal) | CPT/HCPCS: 36416; 97602; A4218 ==

== ENCOUNTER 2017-07-02 08:38 | Outpatient (CLI) | payer SELFPAY ==
--- NOTE | 2017-07-02 11:08 | PRG ---
DATE OF SERVICE: 07/02/2017 HISTORY: Ms. Clarke Castrejon is a very pleasant 56-year-old who presents to the [facility] for evalu ation of multiple wounds of the right perineum and thigh subsequent to surgery for necrotizing fascii tis of the right groin, mons, labia, thigh and groin crease on 05/02/2017. The patient underwent the preceding procedure by Dr. Damion Foster on 05/02/2017. At the time of surgery, the patient also u nderwent wound VAC placement. The patient has completed a course of negative pressure therapy and is currently receiving wet to dry dressing changes for her wounds. Ms. Castrejon has no complaints today . She denies any fever or chills. PHYSICAL EXAMINATION: VITAL SIGNS: Temperature 97.9, pulse 109, respirations 18, blood pressure 139/69. Accu-Chek 110. EXTREMITIES: Two wounds of the right perineum and thigh are present, one of the right perineum and o ne of the right thigh. Granulation tissue is present within the margins of each wound. No purulent drainage is associated with either wound. No cellulitis of the right perineum or thigh is appreciate d. No maceration of the skin of the periwound of either wound is noted. ASSESSMENT AND PLAN: 1. Multiple wounds of right perineum and thigh subsequent to surgery for necrotizing fasciitis of ri ght groin, mons, labia, thigh and groin crease on 05/02/2017. The patient underwent the preceding pr ocedure by Dr. Damion Foster. At surgery, the patient also underwent wound VAC placement. The bella ent completed a course of negative pressure therapy. For the wound of the right perineum, the patien t is performing dressing changes of saline-moistened gauze twice a day. For the wound of her right t high, the patient is performing dressing changes of dry gauze followed by an ABD also twice a day. T he patient states she performs her dressing changes after cleansing and irrigation of her wounds. Th e patient states she will continue to perform her own dressing changes. The patient will be seen by Dr. Michael in 1 week. I will see Ms. Castrejon again in two weeks. 2. Chiari malformation with headaches. 3. Diabetes mellitus. The patient's Accu-Chek in clinic today is 110. The patient has been told at for optimal wound healing, her blood glucoses should remain below 150. 4. Hypertension. 5. Hypothyroidism.
== END 2017-07-02 08:39 | disposition home or self-care (01) ==
LOC: WCC 08:38
PROVIDERS: ATTEND Family Medicine
DX: T81.89XD Other complications of procedures, not elsewhere classified, subsequent encounter (principal); Q07.00 Arnold-Chiari syndrome without spina bifida or hydrocephalus; E11.9 Type 2 diabetes mellitus without complications; I10 Essential (primary) hypertension; E03.9 Hypothyroidism, unspecified
CPT/HCPCS: 36416

== ENCOUNTER 2017-07-08 08:18 | Outpatient (CLI) | payer SELFPAY ==
[2017-07-08] MEDS ORDERED: Sodium Chloride 0.9% 15 ML NEB ONE (09:00)
== END 2017-07-08 08:19 | disposition home or self-care (01) ==
LOC: WCC 08:18
PROVIDERS: ATTEND Family Medicine
DX: T81.89XD Other complications of procedures, not elsewhere classified, subsequent encounter (principal)
CPT/HCPCS: 97602; A4218

== ENCOUNTER 2017-07-15 09:23 | Outpatient (CLI) | payer SELFPAY ==
--- NOTE | 2017-07-15 11:36 | PRG ---
DATE OF SERVICE: 07/15/2017 HISTORY: Ms. Clarke Castrejon is a very pleasant 56-year-old who presents to the [facility] for evalu ation of multiple wounds of the right perineum and thigh subsequent to surgery for necrotizing fascii tis of the right groin, mons, labia, thigh and groin crease on 05/02/2017. The patient underwent the preceding procedure by Dr. Damion Foster on 05/02/2017. At the time of surgery, the patient also u nderwent wound VAC placement. The patient has completed a course of negative pressure therapy and is presently receiving wet to dry dressing changes for her wounds. The patient has no complaints today . She denies any fever or chills. PHYSICAL EXAMINATION: VITAL SIGNS: Temperature 97.7, pulse 100, respirations 19, blood pressure 136/62. Accu-Chek 138. EXTREMITIES: Two wounds of the right perineum and thigh are present, one of the right perineum and o ne of the right thigh. Granulation tissue is present within the margins of each wound. No purulent drainage is associated with either wound. No cellulitis of the right perineum or thigh is appreciate d. No maceration of the skin of the periwound of either wound is noted. ASSESSMENT AND PLAN: 1. Multiple wounds of right perineum and thigh subsequent to surgery for necrotizing fasciitis of ri ght groin, mons, labia, thigh and groin crease on 05/02/2017. The patient underwent the preceding pr ocedure by Dr. Damion Foster. At surgery, the patient also underwent wound VAC placement. The bella ent completed a course of negative pressure therapy. Wet to dry dressing changes for both wounds rakesh l be continued. The patient is performing her own dressing changes. I will see Ms. Castrejon again in two weeks. 2. Chiari malformation with headaches. 3. Diabetes mellitus. The patient's Accu-Chek in clinic today is 138. The patient has been reminde d that for optimal wound healing, her blood glucoses should remain below 150. 4. Hypertension. 5. Hypothyroidism.
== END 2017-07-15 09:24 | disposition home or self-care (01) ==
LOC: WCC 09:23
PROVIDERS: ATTEND Family Medicine
DX: T81.89XD Other complications of procedures, not elsewhere classified, subsequent encounter (principal); E11.622 Type 2 diabetes mellitus with other skin ulcer; L97.119 Non-pressure chronic ulcer of right thigh with unspecified severity; L98.499 Non-pressure chronic ulcer of skin of other sites with unspecified severity; E03.9 Hypothyroidism, unspecified; I10 Essential (primary) hypertension; Q07.00 Arnold-Chiari syndrome without spina bifida or hydrocephalus
CPT/HCPCS: 97602

== ENCOUNTER 2017-07-30 09:33 | Outpatient (CLI) | payer SELFPAY ==
--- NOTE | 2017-07-30 12:00 | PRG ---
DATE OF SERVICE: 07/30/2017 HISTORY: Ms. Clarke Castrejon is a very pleasant 56-year-old, who presents to the [facility] for eval uation of multiple wounds of the right perineum and thigh subsequent to surgery for necrotizing fasci itis of the right groin, mons, labia, thigh, and groin crease on 05/02/2017. The patient underwent t he preceding procedure by Dr. Damion Foster on 05/02/2017. At the time of surgery, the patient also underwent wound VAC placement. The patient completed a course of negative pressure therapy and is p resently dressing her remaining wound with gauze. Ms. Castrejon has no complaints today. She denies a ny fever or chills. PHYSICAL EXAMINATION: VITAL SIGNS: Temperature 98.3, pulse 107, respirations 19, blood pressure 145/66. Accu-Chek 143. EXTREMITIES: Only one wound of the right perineum remains. Granulation tissue is present within the wound margins. No purulent drainage is associated with the wound. No cellulitis of the right perin eum is present. No maceration of the skin of the periwound is noted. ASSESSMENT AND PLAN: 1. Multiple wounds of right perineum and thigh subsequent to surgery for necrotizing fasciitis of ri ght groin, mons, labia, thigh, and groin crease on 05/02/2017. The patient underwent the preceding p rocedure by Dr. Damion Foster. At surgery, the patient also underwent wound VAC placement. The pat ient completed a course of negative pressure therapy. The patient is now dressing the remaining woun d of the right perineum with gauze. Ms. Mir will continue to perform her own dressing changes. I will see Ms. Castrejon again in two weeks. 2. Chiari malformation with headaches. 3. Diabetes mellitus. Patient's Accu-Chek in clinic today is 143. The patient has been reminded th at for optimal wound healing, her blood glucoses should remain below 150. 4. Hypertension. 5. Hypothyroidism.
== END 2017-07-30 09:34 | disposition home or self-care (01) ==
LOC: WCC 09:33
PROVIDERS: ATTEND Family Medicine
DX: T81.89XD Other complications of procedures, not elsewhere classified, subsequent encounter (principal); E11.622 Type 2 diabetes mellitus with other skin ulcer; L98.499 Non-pressure chronic ulcer of skin of other sites with unspecified severity; L97.119 Non-pressure chronic ulcer of right thigh with unspecified severity; Q07.00 Arnold-Chiari syndrome without spina bifida or hydrocephalus; R51 Headache; I10 Essential (primary) hypertension; E03.9 Hypothyroidism, unspecified
CPT/HCPCS: 97602

== ENCOUNTER 2017-08-19 09:49 | Outpatient (CLI) | payer SELFPAY ==
--- NOTE | 2017-08-19 11:20 | PRG ---
DATE OF SERVICE: 08/19/2017 HISTORY: Ms. Clarke Castrejon is a very pleasant 56-year-old who presents to the [facility] for evalu ation of multiple wounds of the right perineum and thigh subsequent to surgery for necrotizing fascii tis of the right groin, mons, labia, thigh and groin crease on 05/02/2017. The patient underwent the preceding procedure by Dr. Damion Foster on 05/02/2017. At the time of surgery, the patient also u nderwent wound VAC placement. The patient completed a course of negative pressure therapy and subseq uently performed dressing changes with gauze. Ms. Castrejon has no complaints today. She denies any f ever or chills. PHYSICAL EXAMINATION: VITAL SIGNS: Temperature 97.8, pulse 100, respirations 18, blood pressure 133/60. Accu-Chek 142. EXTREMITIES: The remaining wound of the right perineum has healed completely. ASSESSMENT AND PLAN: 1. Multiple wounds of right perineum and thigh subsequent to surgery for necrotizing fasciitis of ri ght groin, mons, labia, thigh and groin crease on 05/02/2017. The patient underwent the preceding pr ocedure by Dr. Damion Foster. At surgery, the patient also underwent wound VAC placement. The bella ent completed a course of negative pressure therapy and subsequently performed dressing changes of ga uze. As stated above, the remaining wound of the right perineum has healed completely. Ms. Castrejon will be discharged from clinic today with followup on a p.r.n. basis. 2. Chiari malformation with headaches. 3. Diabetes mellitus. The patient's Accu-Chek in clinic today is 147. The patient has been reminde d that for optimal wound healing, her blood glucoses should remain below 150. 4. Hypertension. 5. Hypothyroidism.
[2017-08-19] MEDS ORDERED: Sodium Chloride 0.9% 15 ML NEB ONE (14:27)
== END 2017-08-19 09:50 | disposition home or self-care (01) ==
LOC: WCC 09:49
PROVIDERS: ATTEND Family Medicine
DX: T81.89XD Other complications of procedures, not elsewhere classified, subsequent encounter (principal); E11.9 Type 2 diabetes mellitus without complications; I10 Essential (primary) hypertension; E03.9 Hypothyroidism, unspecified; G93.89 Other specified disorders of brain
CPT/HCPCS: 99213; A4218; G0463

== ENCOUNTER 2017-08-31 14:49 | Outpatient (CLI) | payer SELFPAY ==
--- NOTE | 2017-08-31 18:25 | PRG ---
DATE OF SERVICE: 08/31/2017 HISTORY: Ms. Clarke Castrejon is a very pleasant 56-year-old who presents to the [facility] for evalu ation of a wound of the right groin. The patient was previously seen in the [facility] Center for multipl e wounds of the right perineum and thigh subsequent to surgery for necrotizing fasciitis of the right groin, mons, labia, thigh and groin crease on 05/02/2017. The patient was discharged from the Wound Center on 08/19/2017 after all wounds had completely healed. The patient reports tenderness associa javier with the wound of the right groin. She denies any fever or chills. PHYSICAL EXAMINATION: VITAL SIGNS: Temperature 98.3, pulse 95, respirations 19, blood pressure 186/70. Accu-Chek 153. EXTREMITIES: A wound of the right groin is present which measures approximately 0.1 x 0.1 cm. A italo doim is associated with the wound which is approximately 0.4 cm in length. A small amount of purulent drainage is associated with the wound which was sent for aerobic and anaerobic cultures. No erythem a of the skin surrounding the wound is present. No maceration of the skin of the periwound is noted. No fluctuant mass or masses of the right groin noted on exam today. ASSESSMENT AND PLAN: 1. Wound of right groin as described above. As stated above, the patient was previously seen in the W[facility] Center for multiple wounds of the right perineum and thigh subsequent to surgery for necrotizi ng fasciitis of the right groin, mons, labia, thigh and groin crease on 05/02/2017. The patient has been given a prescription for Levaquin 500 mg, #10, 1 p.o. daily x10 days. Antibiotic therapy will b e modified based upon the results of the cultures obtained today. The patient has been instructed to keep her wound clean and dry and covered with a bordered gauze. The patient states she will contact the Wound Center for the results of her cultures. Ms. Castrejon will return to the Wound Center on a p.r.n. basis. 2. Chiari malformation with headaches. 3. Diabetes mellitus. The patient's Accu-Chek in clinic today is 153. The patient has been reminde d that for optimal wound healing, her blood glucoses should remain below 150. 4. Hypertension. 5. Hypothyroidism.
== END 2017-08-31 14:50 | disposition home or self-care (01) ==
LOC: WCC 14:49
PROVIDERS: ATTEND Family Medicine
DX: T81.89XD Other complications of procedures, not elsewhere classified, subsequent encounter (principal); E11.9 Type 2 diabetes mellitus without complications; Q07.00 Arnold-Chiari syndrome without spina bifida or hydrocephalus; R51 Headache; I10 Essential (primary) hypertension; E03.9 Hypothyroidism, unspecified
CPT/HCPCS: 36416; 87070; 87205; 97602

== ENCOUNTER 2017-11-05 11:20 | Outpatient (CLI) | payer OTHER | END 2017-11-05 11:21 | disposition home or self-care (01) | LOC: BICRAD 11:20 | PROVIDERS: ATTEND Internal Medicine | DX: Z02.71 Encounter for disability determination (principal); M51.36 Other intervertebral disc degeneration, lumbar region; I70.90 Unspecified atherosclerosis | CPT/HCPCS: 72100 ==